=== PATIENT | female | born 1975 | race Caucasian/White ===

== ENCOUNTER → 2018-08-05 07:40 | Outpatient (CLI) | payer OTHER, SELFPAY ==
--- NOTE | 2018-08-05 | DI.MG.S_ITS ---
BILATERAL DIGITAL SCREENING MAMMOGRAM 3D/2D WITH CAD: 08/05/2018 CLINICAL: Routine screening. Comparison is made to exams dated: 07/29/2017 mammogram and 07/28/2016 mammogram - [facility]. The tissue of both breasts is heterogeneously dense. This may lower the sensitivity of mammography. Current study was also evaluated with a Computer Aided Detection (CAD) system. No significant masses, calcifications, or other findings are seen in either breast. There has been no significant interval change. IMPRESSION: NEGATIVE There is no mammographic evidence of malignancy. A 1 year screening mammogram is recommended. This exam was interpreted at Station ID: [id number]. NOTE: For mammograms, a report in lay terms will be sent to the patient. Approximately 15% of breast malignancies will not be visualized mammographically. In the management of a palpable breast mass, a negative mammogram must not discourage biopsy of a clinically suspicious lesion. Electronically Signed By: Freddy lindo/frandy:08/05/2018 09:29:34 letter sent: Normal Exam ACR BI-RADS Category 1: Negative 3341F
== END ==
PROVIDERS: PCP Family Medicine; Visit Provider Family Medicine
DX: Z12.31 Encounter for screening mammogram for malignant neoplasm of breast (principal)
CPT/HCPCS: 77063; 77067

== ENCOUNTER → 2019-11-16 09:29 | Outpatient (CLI) | payer OTHER, SELFPAY ==
--- NOTE | 2019-11-16 09:32 | DI.RAD.S_ITS ---
PROCEDURE: XR FINGER RT MIN 2V INDICATIONS: R index finger TECHNIQUE: AP hand, 2 views of the index finger(s) acquired. COMPARISON: None. FINDINGS: Bones: No fractures or dislocations. No suspicious bony lesions. No osseous erosions are identified. Soft tissues: No suspicious soft tissue calcifications. No radiopaque foreign bodies are identified. IMPRESSION: No acute osseous abnormality of the right index finger. Dictated by: Stephen Gauthier M.D. on 11/16/2019 at 8:51 Approved by: Stephen Gauthier M.D. on 11/16/2019 at 8:52
== END ==
PROVIDERS: PCP Family Medicine; Referring Provider Physician Assistant; Visit Provider Physician Assistant
DX: M79.644 Pain in right finger(s) (principal)
CPT/HCPCS: 73140

== ENCOUNTER → 2020-08-14 13:47 | Outpatient (CLI) | payer OTHER, SELFPAY ==
--- NOTE | 2020-08-14 14:45 | DI.MRI.S_ITS ---
PROCEDURE: MR HAND RT WO/W CON INDICATIONS: Cellulitis of right finger TECHNIQUE: Noncontrast coronal T1 spin echo and STIR, sagittal T1 spin echo with fat saturation and STIR, axial T1 spin echo and T2 fast spin echo with fat saturation. After the administration of contrast, axial/sagittal/coronal T1 spin echo with fat saturation through the right hand. COMPARISON: [facility], CR, XR FINGER RT MIN 2V, 11/16/2019, 8:36. FINDINGS: There is marrow signal change within the distal phalanx of the thumb, demonstrating enhancement and T2 hyperintensity. There is loss of the normal marrow fat signal intensity on T1 weighted pulse sequences suggestive of osteomyelitis. There is associated overlying distal thumb soft tissue swelling and cellulitis. No discrete rim enhancing abscess identified. The visualized flexor and extensor tendons appear grossly intact IMPRESSION: Marrow signal changes and enhancement involving the distal phalanx of the thumb suggestive of osteomyelitis. Adjacent severe cellulitis . Dictated by: Issa Nunez M.D. on 08/14/2020 at 15:17 Approved by: Issa Nunez M.D. on 08/14/2020 at 15:23
== END ==
PROVIDERS: PCP Family Medicine; Referring Provider Physician Assistant Medical; Visit Provider Physician Assistant Medical
DX: L03.011 Cellulitis of right finger (principal)
CPT/HCPCS: 73220; 73223; A9579

== ENCOUNTER → 2021-02-03 08:12 | Outpatient (CLI) | payer OTHER, SELFPAY ==
--- NOTE | 2021-02-03 08:12 | DI.US.S_ITS ---
PROCEDURE: US PELVIC COMPLETE INDICATIONS: ?FIBROIDS TECHNIQUE: Real-time scanning was performed of the pelvic organs, with image documentation. Additional endovaginal scanning was necessary due to incomplete visualization of the adnexal and endometrial structures by transabdominal scanning. COMPARISON: [facility], US, PELVIC COMPLETE, 04/13/2011, 13:40. FINDINGS: Uterus: Uterus is normal in size at 8.5 x 5 x 4.7 cm. The uterus is heterogeneous, yet no focal fibroids are seen. The endometrium measures 4 mm in combined thickness. Uterus is retroflexed. Incidental note is made of nabothian cysts. Ovaries: The right ovary measures 2.2 x 1.7 x 1.3 cm. The left ovary measures 4.4 x 2.8 x 2.6 cm and is seen transabdominally only. Within the left ovary, there is a likely minimally complex cyst seen that measures 3.7 x 1.3 x 2.1 cm. The ovaries have a normal sonographic appearance. No adnexal masses are seen. Other: No pathologic free abdominal or pelvic fluid. IMPRESSION: No focal fibroids are seen. Likely minimally complex cyst involving the left ovary measuring 3.7 cm. This is almost certainly benign in a patient of this age. If it would be clinically appropriate, a followup pelvic ultrasound could be considered in 6 weeks to assure resolution/ improvement. Dictated by: Jamal Donohue M.D. on 02/03/2021 at 11:23 Approved by: Jamal Donohue M.D. on 02/03/2021 at 11:24
== END ==
PROVIDERS: PCP Family Medicine; Referring Provider Obstetrics & Gynecology; Visit Provider Obstetrics & Gynecology
DX: D21.9 Benign neoplasm of connective and other soft tissue, unspecified (principal); N83.202 Unspecified ovarian cyst, left side
CPT/HCPCS: 76830; 76856

== ENCOUNTER → 2021-02-04 07:12 | Outpatient (CLI) | payer OTHER, SELFPAY ==
--- NOTE | 2021-02-04 | DI.MRI.S_ITS ---
PROCEDURE: MR HAND RT WO/W CON INDICATIONS: Other acute osteomyelitis, right hand TECHNIQUE: Noncontrast coronal T1 spin echo and STIR, sagittal T1 spin echo with fat saturation and STIR, axial T1 spin echo and T2 fast spin echo with fat saturation. After the administration of contrast, axial/sagittal/coronal T1 spin echo with fat saturation through the right hand. COMPARISON: [facility], MR, MR HAND RT WO/W CON, 08/14/2020, 14:08. FINDINGS: Image quality: Excellent. Bones: Compared to previous study, there is mild residual marrow edema involving distal phalanx of the thumb improved since previous study. No new area of abnormal marrow signal is seen. Subtle contrast enhancement in distal portion of the 1st distal phalanx is seen. No other area of intraosseous enhancement. Subtle erosion involving 1st distal phalangeal tuft is seen. No other bony erosive changes are seen. Soft tissues: Mild soft tissue swelling around the 1st distal phalanx is noted. No discrete drainable fluid collection is seen. No enhancing soft tissue mass. The scanned muscles demonstrate normal overall bulk and internal signal. IMPRESSION: 1. Subtle signal abnormality involving distal portion of 1st distal phalanx with mild surrounding soft tissue edema and swelling and very subtle erosion involving 1st distal phalangeal tuft suggestive of residual osteomyelitis significantly improved since previous study. 2. No new area of marrow signal abnormality. No soft tissue mass or discrete abscess collection. No right hand muscle signal abnormality. Dictated by: Ren Troy M.D. on 02/04/2021 at 9:32 Approved by: Ren Troy M.D. on 02/04/2021 at 9:46
== END ==
PROVIDERS: PCP Family Medicine; Referring Provider Internal Medicine; Visit Provider Internal Medicine
DX: M86.141 Other acute osteomyelitis, right hand (principal); M25.441 Effusion, right hand
CPT/HCPCS: 73220

== ENCOUNTER → 2021-03-20 16:25 | Outpatient (CLI) | payer OTHER, SELFPAY ==
--- NOTE | 2021-03-20 | DI.MG.S_ITS ---
BILATERAL DIGITAL SCREENING MAMMOGRAM 3D/2D WITH CAD: 03/20/2021 CLINICAL: Routine screening. Comparison is made to exams dated: 08/05/2018 mammogram, 07/29/2017 mammogram, and 07/28/2016 mammogram - [facility]. The tissue of both breasts is heterogeneously dense. This may lower the sensitivity of mammography. Current study was also evaluated with a Computer Aided Detection (CAD) system. No significant masses, calcifications, or other findings are seen in either breast. There has been no significant interval change. IMPRESSION: NEGATIVE There is no mammographic evidence of malignancy. A 1 year screening mammogram is recommended. This exam was interpreted at Station ID: [id number]. NOTE: For mammograms, a report in lay terms will be sent to the patient. Approximately 15% of breast malignancies will not be visualized mammographically. In the management of a palpable breast mass, a negative mammogram must not discourage biopsy of a clinically suspicious lesion. Electronically Signed By: Clovis fitch/frandy:03/20/2021 17:13:51 letter sent: Normal Exam ACR BI-RADS Category 1: Negative 3341F
== END ==
PROVIDERS: PCP Family Medicine; Referring Provider Family Medicine; Visit Provider Family Medicine
DX: Z12.31 Encounter for screening mammogram for malignant neoplasm of breast (principal)
CPT/HCPCS: 77063; 77067

== ENCOUNTER → 2021-05-01 08:42 | Outpatient (CLI) | payer OTHER, SELFPAY | PROVIDERS: PCP Family Medicine; Referring Provider Internal Medicine; Visit Provider Family Medicine | DX: M86.441 Chronic osteomyelitis with draining sinus, right hand (principal); R60.0 Localized edema | CPT/HCPCS: 99204; 99212 ==

== ENCOUNTER → 2021-05-05 14:35 | Outpatient (ROUT) | payer OTHER, SELFPAY ==
[2021-05-05 14:44] LABS: Add Manual Diff / Slide Review NO; Basophils Absolute Auto 100 /uL (0-100); Eosinophils Absolute Auto 300 /uL (0-450); Eosinophils Percent Auto 3.2 % (2-4); Hematocrit 39.1 % (36-46); Hemoglobin 13.7 g/dL (12.0-16.0); Lymphocytes Absolute Auto 1700 /uL (1100-4500); Lymphocytes Percent Auto 22.2 % (25-40); Mean Corpuscular HGB Conc 35.1 % (30-36); Mean Corpuscular Hemoglobin 33.2 PG (26-34); Mean Corpuscular Volume 94.8 fL (80-100); Monocytes Absolute Auto 700 /uL (0-900); Monocytes Percent Auto 9.2 % (3-14); Neutrophils Absolute Auto 5000 /uL (1500-7000); Neutrophils Percent Auto 64.4 % (50-75); Platelet Count 242 X10^3/uL (150-400); Red Blood Cell Count 4.12 X10^6/uL (4.0-5.2); Red Cell Distribution Width 12.8 % (11.6-14.8); White Blood Cell Count 7.8 X10^3/uL (4.5-11.0)
[2021-05-05 14:57] LABS: Alanine Aminotransferase 44 IU/L (<35); Albumin 4.1 g/dL (3.5-5.0); Albumin Globulin Ratio 1.6 (1.0-2.8); Alkaline Phosphatase 52 U/L (38-126); Aspartate Aminotransferase 44 IU/L (14-36); BUN Creatinine Ratio 19.1 (6-22); Bilirubin Total 0.6 mg/dL (0.2-1.3); Blood Urea Nitrogen 13 mg/dL (7-17); C-Reactive Protein Quant 0.7 mg/dL (<1.0); Calcium 9.4 mg/dL (8.4-10.2); Carbon Dioxide 28 mmol/L (22-32); Chloride 104 mmol/L (98-107); Estimated Glomerular Filt Rate > 60.0 mL/min (>60); Globulin 2.6 g/dL (1.7-4.1); Glucose 109 mg/dL (70-100); HEMOLYSIS 27 (0-50); Potassium 4.3 mmol/L (3.4-5.1); Sodium 139 mmol/L (137-145); Total Protein 6.7 g/dL (6.3-8.2)
[2021-05-05 14:58] LABS: Vancomycin Trough 12.4 ug/mL (10-20)
[2021-05-05 15:02] LABS: Erythrocyte Sedimentation Rate 8 MM/HR (0-20)
== END ==
PROVIDERS: PCP Family Medicine; Visit Provider Internal Medicine
DX: M86.9 Osteomyelitis, unspecified (principal)
CPT/HCPCS: 80053; 80202; 85025; 85651; 86140

== ENCOUNTER 2021-05-14 10:44 | Inpatient (IN) | payer OTHER, SELFPAY ==
[2021-05-14] VITALS (25 sets, daily range): BP systolic 100–136; BP diastolic 57–81; PULSE 67–103; RESP 17–32; TEMP 36.4–38.5; O2SAT 88–98; BMI 38.4
--- NOTE | 2021-05-14 13:29 | PC.NURSE ---
Pt also reports insomnia, headache, diarrhea, SOB, nausea and on and off fever. PICC line in left arm r/t bone infection in right thumb. COVID + on 05/07/21.
--- NOTE | 2021-05-14 15:24 | ED.GENADULT ---
HPI - General Adult General Chief complaint: Shortness of Breath/Dyspnea Stated complaint: COVID+ o2 levels are low. referred by Marni Time Seen by Provider: 05/14/21 15:24 Source: patient Mode of arrival: Ambulatory History of Present Illness HPI narrative: 46-year-old woman with history of asthma, depression, ADHD, osteomyelitis of the right thumb currently with a PICC line in place receiving vancomycin t.i.d. and due for a dose presents with worsening COVID symptoms. She has had COVID for the last 7 days and is increasingly dyspneic, tachypneic, complains of severe pleuritic chest pain secondary to her cough. She notes that she is getting increasingly fatigued and feels dyspneic simply at rest. She has had little to eat or drink because of her nausea she has had some mild diarrhea. No lower extremity edema. Her right thumb with the osteomyelitis is being treated and seems to be healing nicely. Complains of a severe headache secondary to dehydration exacerbated by the cough. Related Data Home Medications Medication Instructions Recorded Confirmed polyethylene glycol 3350 17 #0 03/17/17 05/03/20 gram/dose oral powder (Miralax) Previous Rx's Medication Instructions Recorded albuterol sulfate 90 mcg/actuation 2 puff INHALATION Q4-6H PRN #8.5 05/27/19 aerosol inhaler gram inhalational spacing device #1 each 05/27/19 (Flexichamber) dextroamphetamine 10 mg 20 mg PO QDAY #180 cap 02/19/20 capsule,extended release (Dexedrine Spansule) spironolactone 50 mg tablet See Rx Instructions .ROUTE 04/16/20 .COMPLEX #180 tablet metformin 500 mg tablet See Rx Instructions .ROUTE 07/01/20 .COMPLEX #180 tablet doxycycline hyclate 100 mg capsule 100 mg PO BID #20 cap 07/08/20 sulfamethoxazole 800 1 tab PO BID #20 tab 07/31/20 mg-trimethoprim 160 mg tablet (Bactrim DS) silver sulfadiazine 1 % topical 1 applic TOPICAL DAILY #20 g 11/14/20 cream (Silvadene) fluticasone 250 mcg-salmeterol 50 1 inh INHALATION BID #60 each 12/30/20 mcg/dose blistr powdr for inhalation (Advair Diskus) bupropion HCl 150 mg tablet,12 hr See Rx Instructions .ROUTE 02/27/21 sustained-release .COMPLEX #30 tablet metoprolol succinate 25 mg See Rx Instructions .ROUTE 02/27/21 tablet,extended release 24 hr .COMPLEX #30 tablet trazodone 100 mg tablet 100 mg PO BEDTIME #30 tab 02/27/21 spironolactone 25 See Rx Instructions .ROUTE 05/06/21 mg-hydrochlorothiazide 25 mg tablet .COMPLEX #90 tab phentermine 37.5 mg capsule 37.5 mg PO DAILY #60 cap 05/07/21 Allergies Allergy/AdvReac Type Severity Reaction Status Date / Time sumatriptan Allergy Mild SORE NECK Verified 05/03/20 14:37 Adhesives AdvReac Mild RASH Uncoded 05/03/20 14:37 Review of Systems Review of Systems Narrative: Remainder of complete review of systems is otherwise unremarkable except for that included in the HPI. Patient History Medical History (Updated 05/14/21 @ 17:23 by Ammy Arboleda MD) Anxiety Asthma Hyperlipidemia Liver disease Migraines Obesity Personality disorder Surgical History Status post delivery Status post surgery (04/20/11) Family History Mother DM (diabetes mellitus screen) Hypertension Social History marital status: Smoking Status: Former smoker alcohol intake: current substance use type: does not use Smoking Status: Former smoker alcohol intake frequency: 0-2 drinks per day Substance Use Type: does not use Exam Narrative Exam Narrative: General: Acutely ill-appearing, flushed, tachypneic with dry cough. Able to give a complete and coherent history. Well-nourished well-developed HEENT: Dry mucous membranes, normal sclera with reactive pupils, Neck: No JVD, supple, no cervical adenopathy Respiratory: Lungs with diffuse wheeze in all lung gallegos and developing left lower lobe rhonchi Full and symmetrical air movement Cardiac: Mild tachycardia but otherwise Regular rate and rhythm no murmurs no bruits Abdomen: Soft, diffuse tenderness secondary to cough good bowel tones, no flank pain Skin: Warm and dry, no rashes Neurologic: Grossly neurologically intact with no obvious asymmetries or abnormalities Extremities: No trauma, well perfused Psych: Cooperative, appropriate insight and affect Initial Vital Signs Initial Vital Signs: Vital Signs Temperature 101.3 F H 05/14/21 11:18 Pulse Rate 103 H 05/14/21 11:18 Respiratory Rate 24 05/14/21 11:18 Blood Pressure 122/80 05/14/21 11:18 Pulse Oximetry 98 05/14/21 11:18 Course Orders Ordered: ED Orders 05/14/21 15:33 XR chest 1V Stat 05/14/21 16:12 Complete Blood Count AUTO DIFF Stat Comprehensive Metabolic Panel Stat D Dimer Stat Lactate (Lactic Acid) Stat Magnesium Stat NT-proBNP (BNP-Adult 18+) Stat Procalcitonin Stat 05/14/21 16:22 Blood Culture Stat 05/15/21 16:00 Vancomycin Trough Urgent 05/15/21 19:00 Vancomycin Peak Urgent Vancomycin HCl/Dextrose (Vancomycin) 1,500 mg in 300 mls @ 200 mls/hr IV Q8H RACHEL Last Admin: 05/14/21 16:43 Dose: 200 mls/hr Documented by: JOSÉ MIGUELW Vancomycin HCl (Vancomycin Trough) 1 request MISC 1600 ONE Stop: 05/15/21 16:01 Vancomycin HCl (Vancomycin Peak) 1 request MISC 1900 ONE Stop: 05/15/21 19:01 Discontinued Medications Albuterol (Albuterol 2.5 Mg/3 Ml Neb (Adult)) 2.5 mg INH NOW ONE Stop: 05/14/21 15:33 Dexamethasone (Dexamethasone 10 Mg/Ml Vial) 6 mg IV NOW ONE Stop: 05/14/21 17:17 Sodium Chloride (Normal Saline 0.9%) 1,000 mls @ 1,000 mls/hr IV BOLUS ONE Stop: 05/14/21 16:31 Last Infusion: 05/14/21 17:00 Dose: 0 mls/hr Documented by: Admin: 05/14/21 15:42 Dose: 1,000 mls/hr Documented by: CHRIS Ketorolac Tromethamine (Ketorolac 30 Mg/Ml Vial) 15 mg IV NOW ONE Stop: 05/14/21 15:33 Last Admin: 05/14/21 15:42 Dose: 15 mg Documented by: CHRIS Ondansetron HCl (Ondansetron 4 Mg/2 Ml Inj) 4 mg IV NOW ONE Stop: 05/14/21 15:33 Last Admin: 05/14/21 15:42 Dose: 4 mg Documented by: CHRIS Oxycodone/Acetaminophen (Oxycodone/Acetaminophen 5/325 Tablet) 1 tab PO NOW ONE Stop: 05/14/21 15:33 Last Admin: 05/14/21 15:42 Dose: 1 tab Documented by: CHRIS Vancomycin HCl (Vancomycin Per Pharmacy) 1 request MISC NOW ONE Stop: 05/14/21 15:35 Last Admin: 05/14/21 16:59 Dose: 1 request Documented by: CHRIS Vital Signs Vital signs: Vital Signs - 8 hr 05/14/21 11:18 05/14/21 13:05 05/14/21 13:12 Temperature 101.3 F H 99.5 F Pulse Rate 103 H 103 H Respiratory Rate 24 Blood Pressure 122/80 136/81 Pulse Oximetry 98 97 05/14/21 13:30 05/14/21 14:00 05/14/21 14:30 Temperature Pulse Rate 96 H 96 H 96 H Respiratory Rate Blood Pressure 133/69 132/72 120/70 Pulse Oximetry 93 91 93 05/14/21 14:45 05/14/21 15:00 05/14/21 15:05 Temperature 99.1 F Pulse Rate 93 H Respiratory Rate Blood Pressure 117/59 L Pulse Oximetry 88 L 90 L 05/14/21 15:26 05/14/21 15:30 05/14/21 15:40 Temperature Pulse Rate 91 H 92 H Respiratory Rate Blood Pressure 122/58 L 121/71 Pulse Oximetry 93 97 98 05/14/21 16:00 05/14/21 16:03 05/14/21 16:30 Temperature Pulse Rate 90 90 85 Respiratory Rate 30 H 32 H 32 H Blood Pressure 115/57 L 113/60 Pulse Oximetry 95 96 95 05/14/21 17:00 Temperature Pulse Rate 79 Respiratory Rate 23 Blood Pressure 113/58 L Pulse Oximetry 94 Medical Decision Making Lab Data Result diagrams: 05/14/21 16:12 05/14/21 16:12 Labs: Lab Results 05/14/21 05/14/21 05/14/21 Range/Units 16:12 16:12 16:12 WBC 5.3 (4.5-11.0) X10^3/uL RBC 4.17 (4.0-5.2) X10^6/uL Hgb 13.4 (12.0-16.0) g/dL Hct 38.5 (36-46) % MCV 92.2 (80-100) fL MCH 32.1 (26-34) PG MCHC 34.8 (30-36) % RDW 12.1 (11.6-14.8) % Plt Count 163 (150-400) X10^3/uL Neut % (Auto) 74.5 (50-75) % Lymph % (Auto) 15.8 L (25-40) % [place] % (Auto) 9.5 (3-14) % Eos % (Auto) 0.0 L (2-4) % Baso % (Auto) 0.2 (0-2) % Neut # (Auto) 3900 (3531-3656) /uL Lymph # (Auto) 800 L (8792-9481) /uL [place] # (Auto) 500 (0-900) /uL Eos # (Auto) 0 (0-450) /uL Baso # (Auto) 0 (0-100) /uL D-Dimer 422 H (<230) ng/mL Sodium 129 L D (137-145) mmol/L Potassium 3.9 (3.4-5.1) mmol/L Chloride 91 L (98-107) mmol/L Carbon Dioxide 29 (22-32) mmol/L BUN 9 (7-17) mg/dL Creatinine 0.87 (0.52-1.04) mg/dL Estimated GFR > 60.0 (>60) mL/min BUN/Creatinine Ratio 10.3 (6-22) Glucose 115 H (70-100) mg/dL Lactate (0.7-2.1) mmol/L Calcium 8.7 (8.4-10.2) mg/dL Magnesium 1.6 (1.6-2.3) mg/dL Total Bilirubin 0.5 (0.2-1.3) mg/dL AST 191 H (14-36) IU/L ALT 159 H (<35) IU/L Alkaline Phosphatase 65 (38-126) U/L Total Protein 7.4 (6.3-8.2) g/dL Albumin 4.1 (3.5-5.0) g/dL Globulin 3.3 (1.7-4.1) g/dL Albumin/Globulin Ratio 1.2 (1.0-2.8) 05/14/ Range/Units 16:12 WBC (4.5-11.0) X10^3/uL RBC (4.0-5.2) X10^6/uL Hgb (12.0-16.0) g/dL Hct (36-46) % MCV (80-100) fL MCH (26-34) PG MCHC (30-36) % RDW (11.6-14.8) % Plt Count (150-400) X10^3/uL Neut % (Auto) (50-75) % Lymph % (Auto) (25-40) % [place] % (Auto) (3-14) % Eos % (Auto) (2-4) % Baso % (Auto) (0-2) % Neut # (Auto) (1858-0414) /uL Lymph # (Auto) (6471-0601) /uL [place] # (Auto) (0-900) /uL Eos # (Auto) (0-450) /uL Baso # (Auto) (0-100) /uL D-Dimer (<230) ng/mL Sodium (137-145) mmol/L Potassium (3.4-5.1) mmol/L Chloride (98-107) mmol/L Carbon Dioxide (22-32) mmol/L BUN (7-17) mg/dL Creatinine (0.52-1.04) mg/dL Estimated GFR (>60) mL/min BUN/Creatinine Ratio (6-22) Glucose (70-100) mg/dL Lactate 1.0 (0.7-2.1) mmol/L Calcium (8.4-10.2) mg/dL Magnesium (1.6-2.3) mg/dL Total Bilirubin (0.2-1.3) mg/dL AST (14-36) IU/L ALT (<35) IU/L Alkaline Phosphatase (38-126) U/L Total Protein (6.3-8.2) g/dL Albumin (3.5-5.0) g/dL Globulin (1.7-4.1) g/dL Albumin/Globulin Ratio (1.0-2.8) Imaging Data Chest x-ray: Radiologist's Impression: FINDINGS:? ? Surgical changes and devices:? None.? ? Lungs and pleura:? Patchy consolidation noted in the lungs bilaterally.? No pleural effusions or pneumothorax.? ? Mediastinum:? Mediastinal contours appear normal.? Heart size is normal.? ? Bones and chest wall:? No suspicious bony lesions.? Overlying soft tissues appear unremarkable.? ? IMPRESSION:? Bilateral lung multifocal pneumonia. ? ? Dictated by: Demetria Daniels MD, PhD on 05/14/2021 at 16:15 ? ? MDM Narrative Medical decision making narrative: 46-year-old woman and vaccinated against COVID with COVID symptoms for the last 7 days getting worse with increasing dyspnea even at rest at this point. She has significant asthma and usually uses an Advair inhaler daily with minimal need for rescue inhaler. She has been having difficulty eating and drinking because of nausea, general malaise and her significant cough. The cough has been severe enough that she has a headache and with each cough headache pleuritic chest pain and abdominal pain is becoming more and more difficult. She comes in today with increasing fatigue requesting help assistance. She currently is at 94% on 2 L with activity and sitting up gets as high as 98% but of sleeping inclined without any snoring drops into the 88-89% range. Feeling better with fluids, and steroids. Will hold nebulized treatment until she is in a reverse airflow room. Will give her 2 g of Solu-Medrol to help with the acute asthma exacerbation. Still febrile still hurting from the severity of the cough. Her primary care doctor is Dr. Grider so she will be admitted by Dr. Aponte. She is safe for transfer to the floor Discharge Plan Departure Patient Disposition: Admitted As Inpatient Clinical Impression: Pneumonia due to 2019-nCoV, Acute asthma exacerbation, Respiratory failure with hypoxia, Osteomyelitis Admit Date/Time: 05/14/21 17:17 Admit Provider: Senia Aponte
--- NOTE | 2021-05-14 15:33 | DI.RAD.S_ITS ---
PROCEDURE: XR CHEST 1V INDICATIONS: cough TECHNIQUE: One view of the chest was acquired. COMPARISON: [facility], , CHEST 2 VIEW, 05/23/2013, 16:38. FINDINGS: Surgical changes and devices: None. Lungs and pleura: Patchy consolidation noted in the lungs bilaterally. No pleural effusions or pneumothorax. Mediastinum: Mediastinal contours appear normal. Heart size is normal. Bones and chest wall: No suspicious bony lesions. Overlying soft tissues appear unremarkable. IMPRESSION: Bilateral lung multifocal pneumonia. Dictated by: Demetria Daniels MD, PhD on 05/14/2021 at 16:15 Approved by: Demetria Daniels MD, PhD on 05/14/2021 at 16:15
[2021-05-14] MEDS: OXYCODONE/ACETAMINOPHEN 5/325 TABLET 1 TAB PO (15:42)
[2021-05-14] MEDS: SODIUM CHLORIDE 0.9% 1,000 ML 1000 ML IV (15:42)
[2021-05-14] MEDS: ONDANSETRON 4 MG/2 ML INJ IV (15:42)
[2021-05-14] MEDS: KETOROLAC 30 MG/ML VIAL 15 MG IV (15:42)
[2021-05-14 16:37] LABS: Add Manual Diff / Slide Review NO; Basophils Absolute Auto 0 /uL (0-100); Basophils Percent Auto 0.2 % (0-2); Eosinophils Absolute Auto 0 /uL (0-450); Hematocrit 38.5 % (36-46); Hemoglobin 13.4 g/dL (12.0-16.0); Lymphocytes Absolute Auto 800 /uL (1100-4500); Lymphocytes Percent Auto 15.8 % (25-40); Mean Corpuscular HGB Conc 34.8 % (30-36); Mean Corpuscular Hemoglobin 32.1 PG (26-34); Mean Corpuscular Volume 92.2 fL (80-100); Monocytes Absolute Auto 500 /uL (0-900); Monocytes Percent Auto 9.5 % (3-14); Neutrophils Absolute Auto 3900 /uL (1500-7000); Neutrophils Percent Auto 74.5 % (50-75); Platelet Count 163 X10^3/uL (150-400); Red Blood Cell Count 4.17 X10^6/uL (4.0-5.2); Red Cell Distribution Width 12.1 % (11.6-14.8); White Blood Cell Count 5.3 X10^3/uL (4.5-11.0)
[2021-05-14] MEDS: VANCOMYCIN 1,500 MG/300 ML PIGGYBACK 200 MG IV (16:43)
[2021-05-14 16:54] LABS: D Dimer 422 ng/mL (<230)
[2021-05-14 16:55] LABS: Alanine Aminotransferase 159 IU/L (<35); Albumin 4.1 g/dL (3.5-5.0); Albumin Globulin Ratio 1.2 (1.0-2.8); Alkaline Phosphatase 65 U/L (38-126); Aspartate Aminotransferase 191 IU/L (14-36); BUN Creatinine Ratio 10.3 (6-22); Bilirubin Total 0.5 mg/dL (0.2-1.3); Blood Urea Nitrogen 9 mg/dL (7-17); Calcium 8.7 mg/dL (8.4-10.2); Carbon Dioxide 29 mmol/L (22-32); Chloride 91 mmol/L (98-107); Estimated Glomerular Filt Rate > 60.0 mL/min (>60); Globulin 3.3 g/dL (1.7-4.1); Glucose 115 mg/dL (70-100); HEMOLYSIS < 15 (0-50); Magnesium 1.6 mg/dL (1.6-2.3); Potassium 3.9 mmol/L (3.4-5.1); Sodium 129 mmol/L (137-145); Total Protein 7.4 g/dL (6.3-8.2)
[2021-05-14] MEDS: VANCOMYCIN PER PHARMACY 1 REQUEST MISC (16:59)
[2021-05-14 17:25] LABS: NT-proBNP (BNP-Adult 18+) 49 pg/mL (<125)
--- NOTE | 2021-05-14 18:17 | P.HP_ITS ---
History of Present Illness History of Present Illness Date Patient Seen: 05/14/21 Time Patient Seen: 17:30 Chief complaint: COVID+ o2 levels are low. referred by Marni Narrative: Pt is a 46yo woman with PCOS, HTN, asthma without recent exacerbation, depression, and chronic osteomyelitis who presented with worsening SOB and cough. The pt reports that starting one week ago she developed a frequent cough and generally didn't feel well. She completed three different COVID tests at home, and all were positive. Since then, her cough has continued to worsen. She has had intermittent fevers, never above around 101.5F. She has been feeling increasingly SOB. She lost her sense of taste and smell. She has had mild diarrhea, however states this is not all that unusual for her due to her chronic antibiotics for osteomyelitis. She has had decreased PO intake due to feeling quite nauseous and not having any sense of taste. She has developed significant chest pain due to how much she is coughing now. She had an appointment with her ID physician this morning, who recommended she come to the ED for evaluation due to how SOB she was feeling. The pt has not received any COVID vaccines. Patient History Medical History (Updated 05/14/21 @ 17:23 by Ammy Arboleda MD) Anxiety Asthma Hyperlipidemia Liver disease Migraines Obesity Personality disorder Surgical History Status post delivery Status post surgery (04/20/11) Family & Social History Family History Mother DM (diabetes mellitus screen) Hypertension Safety & Behavioral: Feels Safe in Current Yes Environment Been Physically Hurt or No Threatened By a Person Tobacco & Substance use: Smoking Status Former smoker alcohol intake current alcohol intake frequency 0-2 drinks per day Substance Use Type does not use Meds Home Medications and Allergies Home Medications Medication Instructions Recorded Confirmed Type polyethylene glycol 3350 17 #0 03/17/17 05/03/20 History gram/dose oral powder (Miralax) albuterol sulfate 90 mcg/actuation 2 puff INHALATION Q4-6H PRN #8.5 05/27/19 05/03/20 Rx aerosol inhaler gram inhalational spacing device #1 each 05/27/19 05/03/20 Rx (Flexichamber) dextroamphetamine 10 mg 20 mg PO QDAY #180 cap 02/19/20 05/03/20 Rx capsule,extended release (Dexedrine Spansule) spironolactone 50 mg tablet See Rx Instructions .ROUTE 04/16/20 05/03/20 Rx .COMPLEX #180 tablet metformin 500 mg tablet See Rx Instructions .ROUTE 07/01/20 Rx .COMPLEX #180 tablet doxycycline hyclate 100 mg capsule 100 mg PO BID #20 cap 07/08/20 Rx sulfamethoxazole 800 1 tab PO BID #20 tab 07/31/20 Rx mg-trimethoprim 160 mg tablet (Bactrim DS) silver sulfadiazine 1 % topical 1 applic TOPICAL DAILY #20 g 11/14/20 Rx cream (Silvadene) fluticasone 250 mcg-salmeterol 50 1 inh INHALATION BID #60 each 12/30/20 Rx mcg/dose blistr powdr for inhalation (Advair Diskus) bupropion HCl 150 mg tablet,12 hr See Rx Instructions .ROUTE 02/27/21 Rx sustained-release .COMPLEX #30 tablet metoprolol succinate 25 mg See Rx Instructions .ROUTE 02/27/21 Rx tablet,extended release 24 hr .COMPLEX #30 tablet trazodone 100 mg tablet 100 mg PO BEDTIME #30 tab 02/27/21 Rx spironolactone 25 See Rx Instructions .ROUTE 05/06/21 Rx mg-hydrochlorothiazide 25 mg tablet .COMPLEX #90 tab phentermine 37.5 mg capsule 37.5 mg PO DAILY #60 cap 05/07/21 Rx Allergies Allergy/AdvReac Type Severity Reaction Status Date / Time sumatriptan Allergy Mild SORE NECK Verified 05/03/20 14:37 Adhesives AdvReac Mild RASH Uncoded 05/03/20 14:37 Exam Vital Signs (past 8 hours): - 05/14/21 11:18 05/14/21 13:05 05/14/21 13:12 Temperature 101.3 F H 99.5 F Pulse Rate 103 H 103 H Respiratory Rate 24 Blood Pressure 122/80 136/81 Pulse Oximetry 98 97 05/14/21 13:30 05/14/21 14:00 05/14/21 14:30 Temperature Pulse Rate 96 H 96 H 96 H Respiratory Rate Blood Pressure 133/69 132/72 120/70 Pulse Oximetry 93 91 93 05/14/21 14:45 05/14/21 15:00 05/14/21 15:05 Temperature 99.1 F Pulse Rate 93 H Respiratory Rate Blood Pressure 117/59 L Pulse Oximetry 88 L 90 L 05/14/21 15:26 05/14/21 15:30 05/14/21 15:40 Temperature Pulse Rate 91 H 92 H Respiratory Rate Blood Pressure 122/58 L 121/71 Pulse Oximetry 93 97 98 05/14/21 16:00 05/14/21 16:03 05/14/21 16:30 Temperature Pulse Rate 90 90 85 Respiratory Rate 30 H 32 H 32 H Blood Pressure 115/57 L 113/60 Pulse Oximetry 95 96 95 05/14/21 17:00 Temperature Pulse Rate 79 Respiratory Rate 23 Blood Pressure 113/58 L Pulse Oximetry 94 Oxygen Delivery Method Nasal Cannula Oxygen Flow Rate 1 Narrative Exam Narrative: Gen: NAD, laying in bed, sweating Neck: no LAD CV: RRR, no murmurs Resp: decreased air movement throughout, crackles bilateral bases, expiratory wheezing all lung gallegos Abd: soft, nontender, nondistended, normoactive bowel sounds Ext: no edema Objective Labs Result Diagrams: 05/14/21 16:12 05/14/21 16:12 Labs: Laboratory Results - last 24 hr 05/14/21 05/14/21 05/14/21 16:12 16:12 16:12 WBC 5.3 RBC 4.17 Hgb 13.4 Hct 38.5 MCV 92.2 MCH 32.1 MCHC 34.8 RDW 12.1 Plt Count 163 Neut % (Auto) 74.5 Lymph % (Auto) 15.8 L [place] % (Auto) 9.5 Eos % (Auto) 0.0 L Baso % (Auto) 0.2 Neut # (Auto) 3900 Lymph # (Auto) 800 L [place] # (Auto) 500 Eos # (Auto) 0 Baso # (Auto) 0 D-Dimer 422 H Sodium 129 L D Potassium 3.9 Chloride 91 L Carbon Dioxide 29 BUN 9 Creatinine 0.87 Estimated GFR > 60.0 BUN/Creatinine Ratio 10.3 Glucose 115 H Lactate Calcium 8.7 Magnesium 1.6 Total Bilirubin 0.5 AST 191 H ALT 159 H Alkaline Phosphatase 65 NT-Pro-B Natriuret Pep Total Protein 7.4 Albumin 4.1 Globulin 3.3 Albumin/Globulin Ratio 1.2 Procalcitonin 05/14/21 05/14/21 16:12 16:12 WBC RBC Hgb Hct MCV MCH MCHC RDW Plt Count Neut % (Auto) Lymph % (Auto) [place] % (Auto) Eos % (Auto) Baso % (Auto) Neut # (Auto) Lymph # (Auto) [place] # (Auto) Eos # (Auto) Baso # (Auto) D-Dimer Sodium Potassium Chloride Carbon Dioxide BUN Creatinine Estimated GFR BUN/Creatinine Ratio Glucose Lactate 1.0 Calcium Magnesium Total Bilirubin AST ALT Alkaline Phosphatase NT-Pro-B Natriuret Pep 49 Total Protein Albumin Globulin Albumin/Globulin Ratio Procalcitonin 0.30 Assessment & Plan Assessment & Plan narrative: Pt is a 46yo woman with PCOS, HTN, asthma without recent exacerbation, depression, and chronic osteomyelitis who presented with worsening SOB and cough. Tested positive for COVID 7 days ago on multiple tests, not repeated in the ED here. Pt also with evidence of asthma exacerbation. Oxygen requirement primarily for comfort at this point, no severe hypoxia. 1) COVID pneumonia: CXR consistent with pneumonia, however not grossly bacte rial in appearance at this time. Will treat as COVID, and if not improving plan to repeat CXR and potentially add antibiotic coverage. - Dexamethasone daily - Discussed Remdesivir, pt prefers to hold off at this time - RT consulted - Zofran PRN for nausea - Mucinex, Percocet PRN for cough - Tylenol and Ibuprofen PRN for fever, s/p one dose Toradol in the ED 2) Acute asthma exacerbation: Significantly decreased air movement and significant wheezing - Continue home inhalers - Dexamethasone as above - Will hold on nebulizer treatments until RT eval, hopeful can avoid due to COVID and risk to care providers 3) Hyponatremia: Acute. Sodium 129 at admission. s/p 1L NS bolus in the ED - Gentle hydration at 75cc/hr overnight, like to keep COVID pts from fluid overload - Repeat BMP in the AM 4) Elevated liver enzymes: Most likely due to COVID - Will continue to trend 5) Chronic osteomyelitis: - Continue home Vancomycin via PICC, Augmentin - Hesitantly continue home Fluconazole, monitoring liver enzymes closely 6) HTN: - Continue home Metoprolol, HCTZ 7) PCOS: - Continue home Metformin, Spirinolactone 8) Depression: - Continue home Wellbutrin Code: Full Diet: Regular DVT ppx: Lovenox Dispo: Pending improvement in respiratory status. High risk for decompensation due to asthma. Anticipate at least 2 midnights. Time Spent With Patient Critical Care time: I spent a total of [] minutes of critical care time on this patient's care today; this time is exclusive of procedural time.
[2021-05-14] MEDS: DEXAMETHASONE 10 MG/ML VIAL 6 MG IV (18:19)
[2021-05-14] MEDS: MAGNESIUM SULFATE 2 GM/50 ML PIGGYBACK IV (18:19)
--- NOTE | 2021-05-14 19:46 | RT ---
I assessed pt at 1940. Pt is here for asthma exacerbation and COVID+ PNA. Pt is on 2 LPM NC, SpO2 95%, RR 22. BS diminished B/L with clear CIRO. Pt has hx of COPD/asthma and takes Advair and Albuterol at home. Pt is a former smoker as well and quit in 2008. Recommending SVNs for asthma exacerbation, O2 therapy as needed. Educated pt on IS and proning. Pt seems willing to participate.
[2021-05-14] MEDS: ONDANSETRON 4 MG ODT PO (20:34)
[2021-05-14] MEDS: AMOXICILLIN/CLAV 875/125 MG 1 TAB PO (20:35)
[2021-05-14] MEDS: guaiFENesin ER 600 MG TAB 1200 MG PO (20:35)
[2021-05-14] MEDS: TRAZODONE 50 MG TABLET 100 MG PO (20:35)
[2021-05-14] MEDS: SPIRONOLACTONE 25 MG TABLET 50 MG PO (20:35)
[2021-05-14] MEDS: BUDESONIDE 0.5 MG/2 ML NEB INH (20:37)
[2021-05-14] MEDS: ALBUTEROL 2.5 MG/3 ML NEB (ADULT) INH (20:37)
--- NOTE | 2021-05-14 22:47 | RT ---
Pt declined 2300 Duoneb at 2240. Found pt on 2 LPM NC, SpO2 90%. Increased to 4 LPM to maintain SpO2 goal of > or equal to 92% per MD order. RN aware. Pt is supine in bed.
[2021-05-15] VITALS (11 sets, daily range): BP systolic 102–142; BP diastolic 64–86; PULSE 63–91; RESP 16–26; TEMP 36.4–37; O2SAT 91–99
[2021-05-15] MEDS: VANCOMYCIN 1,500 MG/300 ML PIGGYBACK 100 MG IV ×2 (01:05→08:20)
[2021-05-15] MEDS: SODIUM CHLORIDE 0.9% 1,000 ML 75 ML IV (03:02)
[2021-05-15] MEDS: HYDROCODONE/ACET 5/325 TABLET 1 TAB PO ×4 (03:02→20:22)
[2021-05-15 05:59] LABS: Alanine Aminotransferase 160 IU/L (<35); Albumin 3.8 g/dL (3.5-5.0); Albumin Globulin Ratio 1.2 (1.0-2.8); Alkaline Phosphatase 53 U/L (38-126); Aspartate Aminotransferase 173 IU/L (14-36); BUN Creatinine Ratio 14.5 (6-22); Bilirubin Total 0.5 mg/dL (0.2-1.3); Blood Urea Nitrogen 11 mg/dL (7-17); Calcium 8.3 mg/dL (8.4-10.2); Carbon Dioxide 29 mmol/L (22-32); Chloride 97 mmol/L (98-107); Estimated Glomerular Filt Rate > 60.0 mL/min (>60); Globulin 3.2 g/dL (1.7-4.1); Glucose 165 mg/dL (70-100); HEMOLYSIS 22 (0-50); Sodium 132 mmol/L (137-145)
--- NOTE | 2021-05-15 07:27 | PC.NURSE ---
Shift Note-Patient has been on 2-4L NC, SpO2 >90%, painful cough treated with Mucinex and [place], lung sounds coarse throughout. NS @ 75ml/hr, IV Vancomycin given per schedule, afebrile, VSS, had 1 episode diarrhea. SBA to BR.
[2021-05-15] MEDS: guaiFENesin ER 600 MG TAB 1200 MG PO ×2 (08:22→20:21)
[2021-05-15] MEDS: ONDANSETRON 4 MG ODT PO (08:22)
[2021-05-15] MEDS: METOPROLOL ER 25 MG TABLET PO (08:23)
[2021-05-15] MEDS: hydroCHLOROthiazide 25 MG TABLET PO (08:23)
[2021-05-15] MEDS: buPROPion SR 150 MG TAB PO (08:23)
[2021-05-15] MEDS: SPIRONOLACTONE 25 MG TABLET 75 MG PO (08:23)
[2021-05-15] MEDS: FLUCONAZOLE 100 MG TABLET 400 MG PO (08:23)
[2021-05-15] MEDS: DEXAMETHASONE 10 MG/ML VIAL 6 MG IV (08:24)
[2021-05-15] MEDS: ENOXAPARIN 40 MG/0.4 ML SYRINGE SUBCUT (08:24)
[2021-05-15] MEDS: AMOXICILLIN/CLAV 875/125 MG 1 TAB PO ×2 (08:24→20:21)
[2021-05-15] MEDS: METFORMIN HCL 500 MG TABLET PO ×2 (08:24→20:21)
[2021-05-15] MEDS: BUDESONIDE 0.5 MG/2 ML NEB INH ×2 (08:47→19:40)
[2021-05-15] MEDS: ALBUTEROL/IPRATROPIUM 3 ML AMPUL INH ×3 (08:47→19:40)
--- NOTE | 2021-05-15 08:56 | P.PN_ITS ---
Subjective Subjective Date Patient Seen: 05/15/21 Time Patient Seen: 08:30 Interval history: The pt reports that she is feeling significantly improved this morning. She continues to have a frequent, painful cough but states that she no longer feels like . She remains very nauseous, and is curious how breakfast will go. Overnight, her O2 was increased to 4L. She states that she feels worse on the higher flow. Exam Vital Signs (past 8 hours): - 05/15/21 00:58 05/15/21 05:30 05/15/21 08:39 Temperature 97.6 F 97.9 F 97.7 F Pulse Rate 63 68 86 Respiratory Rate 16 20 22 Blood Pressure 110/74 102/64 142/84 H Pulse Oximetry 97 96 99 Oxygen Delivery Method Nasal Cannula Oxygen Flow Rate 4 Narrative Exam Narrative: Gen: NAD, laying in bed, appears significantly better than yesterday CV: RRR, no murmurs Resp: decreased air movement throughout but improved from yesterday, crackles bilateral bases, expiratory wheezing all gallegos Ext: no edema Objective Labs Result Diagrams: 05/14/21 16:12 05/15/21 05:00 Labs: Laboratory Results - last 24 hr 05/14/21 05/14/21 05/14/21 16:12 16:12 16:12 WBC 5.3 RBC 4.17 Hgb 13.4 Hct 38.5 MCV 92.2 MCH 32.1 MCHC 34.8 RDW 12.1 Plt Count 163 Neut % (Auto) 74.5 Lymph % (Auto) 15.8 L [place] % (Auto) 9.5 Eos % (Auto) 0.0 L Baso % (Auto) 0.2 Neut # (Auto) 3900 Lymph # (Auto) 800 L [place] # (Auto) 500 Eos # (Auto) 0 Baso # (Auto) 0 D-Dimer 422 H Sodium 129 L D Potassium 3.9 Chloride 91 L Carbon Dioxide 29 BUN 9 Creatinine 0.87 Estimated GFR > 60.0 BUN/Creatinine Ratio 10.3 Glucose 115 H Lactate Calcium 8.7 Magnesium 1.6 Total Bilirubin 0.5 AST 191 H ALT 159 H Alkaline Phosphatase 65 NT-Pro-B Natriuret Pep Total Protein 7.4 Albumin 4.1 Globulin 3.3 Albumin/Globulin Ratio 1.2 Procalcitonin Nasal Screen MRSA (PCR) 12/05/14/21 05/14/21 16:12 16:12 23:15 WBC RBC Hgb Hct MCV MCH MCHC RDW Plt Count Neut % (Auto) Lymph % (Auto) [place] % (Auto) Eos % (Auto) Baso % (Auto) Neut # (Auto) Lymph # (Auto) [place] # (Auto) Eos # (Auto) Baso # (Auto) D-Dimer Sodium Potassium Chloride Carbon Dioxide BUN Creatinine Estimated GFR BUN/Creatinine Ratio Glucose Lactate 1.0 Calcium Magnesium Total Bilirubin AST ALT Alkaline Phosphatase NT-Pro-B Natriuret Pep 49 Total Protein Albumin Globulin Albumin/Globulin Ratio Procalcitonin 0.30 Nasal Screen MRSA (PCR) Negative for mrsa 05/15/21 05:00 WBC RBC Hgb Hct MCV MCH MCHC RDW Plt Count Neut % (Auto) Lymph % (Auto) [place] % (Auto) Eos % (Auto) Baso % (Auto) Neut # (Auto) Lymph # (Auto) [place] # (Auto) Eos # (Auto) Baso # (Auto) D-Dimer Sodium 132 L Potassium 5.0 Chloride 97 L Carbon Dioxide 29 BUN 11 Creatinine 0.76 Estimated GFR > 60.0 BUN/Creatinine Ratio 14.5 Glucose 165 H Lactate Calcium 8.3 L Magnesium Total Bilirubin 0.5 AST 173 H ALT 160 H Alkaline Phosphatase 53 NT-Pro-B Natriuret Pep Total Protein 7.0 Albumin 3.8 Globulin 3.2 Albumin/Globulin Ratio 1.2 Procalcitonin Nasal Screen MRSA (PCR) [facility] Medical History (Updated 05/14/21 @ 17:23 by Ammy Arboleda MD) Anxiety Asthma Hyperlipidemia Liver disease Migraines Obesity Personality disorder Surgical History Status post delivery Status post surgery (04/20/11) Family History Mother DM (diabetes mellitus screen) Hypertension Social History marital status: household members: spouse and children Smoking Status: Former smoker alcohol intake: current substance use type: does not use Assessment & Plan Assessment & Plan narrative: Pt is a 46yo woman with PCOS, HTN, asthma without recent exacerbation, depression, and chronic osteomyelitis who presented with worsening SOB and cough.? Tested positive for COVID 7 days ago on multiple tests, not repeated in the ED here.? Pt also with evidence of asthma exacerbation.? 1)? COVID pneumonia:? CXR consistent with pneumonia, however not grossly bacterial in appearance at this time. O2 requirement increased to 4L overnight, now down to 3L with O2 sat around 96% at rest but desaturations with movement. - Dexamethasone daily - Discussed Remdesivir in detail, including risks vs benefits. Will hold on starting at this time. - RT consulted - Zofran PRN for nausea - Mucinex, Percocet PRN for cough - Tylenol and Ibuprofen PRN for fever, s/p one dose Toradol in the ED 2)? Acute asthma exacerbation:? Significantly decreased air movement and significant wheezing. Improved slightly from yesterday. - Continue home inhalers - Dexamethasone as above - Duonebs PRN 3)? Hyponatremia:? Acute.? Sodium 129 at admission, improved to 132 this morning. s/p 1L NS bolus in the ED - Continue gentle hydration at 75cc/hr overnight, like to keep COVID pts from fluid overload. Pt also with very little PO intake yet. - Repeat BMP in the AM 4)? Elevated liver enzymes:? Most likely due to COVID. Stable to improving slightly. - Will continue to trend 5)? Chronic osteomyelitis: - Continue home Vancomycin via PICC, Augmentin - Hesitantly continue home Fluconazole, monitoring liver enzymes closely 6)? HTN: ?- Continue home Metoprolol, HCTZ 7)? PCOS: - Continue home Metformin, Spirinolactone 8)? Depression: - Continue home Wellbutrin Code:? Full Diet:? Regular DVT ppx:? Lovenox Dispo:? Pending improvement in respiratory status.? High risk for decompensation due to asthma. Time Spent With Patient Critical Care time: I spent a total of [] minutes of critical care time on this patient's care today; this time is exclusive of procedural time. Quality VTE Deep Vein Thrombosis/Pulmonary Embolism Present on Admission: No
[2021-05-15 17:05] LABS: Vancomycin Trough 20.5 ug/mL (10-20)
[2021-05-15] MEDS: VANCOMYCIN 1,250 MG/250 ML PIGGYBACK 100 MG IV (20:20)
[2021-05-15] MEDS: SPIRONOLACTONE 25 MG TABLET 50 MG PO (20:21)
[2021-05-15] MEDS: CODEINE/GUAIFENESIN LIQUID 5ML UDC 5 ML PO (20:22)
[2021-05-15] MEDS: TRAZODONE 50 MG TABLET 100 MG PO (20:22)
--- NOTE | 2021-05-15 23:31 | RT ---
patient having tremors from the Q4WA duoneb tx's. I changed her order to atrovent Q4WA and made albuterol just PRN
[2021-05-16] VITALS (12 sets, daily range): BP systolic 108–138; BP diastolic 62–93; PULSE 64–106; RESP 17–26; TEMP 36.2–37.3; O2SAT 92–98
[2021-05-16] MEDS: SODIUM CHLORIDE 0.9% 1,000 ML 75 ML IV (00:13)
[2021-05-16] MEDS: HYDROCODONE/ACET 5/325 TABLET 1 TAB PO ×4 (00:48→17:47)
[2021-05-16] MEDS: VANCOMYCIN 1,250 MG/250 ML PIGGYBACK 100 MG IV ×3 (04:48→20:32)
[2021-05-16 05:26] LABS: Alanine Aminotransferase 136 IU/L (<35); Albumin 3.9 g/dL (3.5-5.0); Albumin Globulin Ratio 1.1 (1.0-2.8); Alkaline Phosphatase 61 U/L (38-126); Aspartate Aminotransferase 108 IU/L (14-36); BUN Creatinine Ratio 9.9 (6-22); Bilirubin Total 0.5 mg/dL (0.2-1.3); Blood Urea Nitrogen 7 mg/dL (7-17); Calcium 8.9 mg/dL (8.4-10.2); Carbon Dioxide 28 mmol/L (22-32); Chloride 102 mmol/L (98-107); Estimated Glomerular Filt Rate > 60.0 mL/min (>60); Globulin 3.4 g/dL (1.7-4.1); Glucose 129 mg/dL (70-100); HEMOLYSIS < 15 (0-50); Potassium 4.5 mmol/L (3.4-5.1); Sodium 137 mmol/L (137-145); Total Protein 7.3 g/dL (6.3-8.2)
[2021-05-16] MEDS: CODEINE/GUAIFENESIN LIQUID 5ML UDC 5 ML PO ×3 (06:00→17:47)
--- NOTE | 2021-05-16 06:48 | PC.NURSE ---
Shift Note-Patient proned part of the night, did side-lying also, on 3L NC, says she feels winded after ambulating to the BR, desats to mid 80s,recovers quickly to >92%, continues to have intermittent painful cough, codeine elixer and [place] given per prn.
[2021-05-16] MEDS: ENOXAPARIN 40 MG/0.4 ML SYRINGE SUBCUT (08:37)
[2021-05-16] MEDS: buPROPion SR 150 MG TAB PO (08:38)
[2021-05-16] MEDS: guaiFENesin ER 600 MG TAB 1200 MG PO ×2 (08:38→20:32)
[2021-05-16] MEDS: FLUCONAZOLE 100 MG TABLET 400 MG PO (08:38)
[2021-05-16] MEDS: METFORMIN HCL 500 MG TABLET PO ×2 (08:39→20:33)
[2021-05-16] MEDS: SPIRONOLACTONE 25 MG TABLET 75 MG PO (08:39)
[2021-05-16] MEDS: METOPROLOL ER 25 MG TABLET PO (08:39)
[2021-05-16] MEDS: AMOXICILLIN/CLAV 875/125 MG 1 TAB PO ×2 (08:40→20:32)
[2021-05-16] MEDS: DEXAMETHASONE 10 MG/ML VIAL 6 MG IV (08:40)
[2021-05-16] MEDS: hydroCHLOROthiazide 25 MG TABLET PO (08:40)
--- NOTE | 2021-05-16 09:19 | DI.RAD.S_ITS ---
PROCEDURE: XR CHEST 1V INDICATIONS: increasing crackles bases, COVID TECHNIQUE: One view of the chest was acquired. COMPARISON: [facility], JANIYA, CHEST 2 VIEW, 05/23/2013, 16:38. [facility], JANIYA, XR CHEST 1V, 05/14/2021, 16:01. FINDINGS: Surgical changes and devices: None. Lungs and pleura: Low lung volumes with worsening bilateral interstitial infiltrates can be seen. No pleural effusions or pneumothorax. Mediastinum: Mediastinal contours appear normal. Heart size is normal. Bones and chest wall: No suspicious bony lesions. Overlying soft tissues appear unremarkable. IMPRESSION: Worsening bilateral interstitial infiltrates are seen, which are consistent with the given history of COVID pneumonia. Dictated by: Jamal Donohue M.D. on 05/16/2021 at 8:45 Approved by: Jamal Donohue M.D. on 05/16/2021 at 8:47
--- NOTE | 2021-05-16 09:20 | PM.PN.1 ---
Subjective Subjective Date Patient Seen: 05/16/21 Time Patient Seen: 08:15 Interval history: The pt reports feeling worse this morning. She states that rising to the restroom is very painful, as is transitioning from prone to other positions. Her cough remains persistent. Exam Vital Signs (past 8 hours): - 05/16/21 02:46 05/16/21 05:00 05/16/21 08:00 Temperature 97.1 F L 99.2 F Pulse Rate 91 H 106 H Respiratory Rate 26 H 20 Blood Pressure 109/70 133/86 Pulse Oximetry 95 96 93 05/16/21 08:39 Temperature Pulse Rate 106 H Respiratory Rate Blood Pressure 133/86 Pulse Oximetry Oxygen Delivery Method Nasal Cannula Oxygen Flow Rate 2 Narrative Exam Narrative: Gen:? NAD, laying in bed, appears sweaty CV:? RRR, no murmurs Resp:? decreased air movement stable from yesterday, crackles bilateral bases, no wheezing Ext:? no edema Objective Labs Result Diagrams: 05/14/21 16:12 05/16/21 04:56 Labs: Laboratory Results - last 24 hr 05/15/21 05/16/21 15:40 04:56 Sodium 137 Potassium 4.5 Chloride 102 Carbon Dioxide 28 BUN 7 Creatinine 0.71 Estimated GFR > 60.0 BUN/Creatinine Ratio 9.9 Glucose 129 H Calcium 8.9 Total Bilirubin 0.5 AST 108 H ALT 136 H Alkaline Phosphatase 61 Total Protein 7.3 Albumin 3.9 Globulin 3.4 Albumin/Globulin Ratio 1.1 Vancomycin Trough 20.5 H* [facility] Medical History (Updated 05/14/21 @ 17:23 by Ammy Arboleda MD) Anxiety Asthma Hyperlipidemia Liver disease Migraines Obesity Personality disorder Surgical History Status post delivery Status post surgery (04/20/11) Family History Mother DM (diabetes mellitus screen) Hypertension Social History marital status: household members: spouse and children Smoking Status: Former smoker alcohol intake: current substance use type: does not use Assessment & Plan Assessment & Plan narrative: Pt is a 46yo woman with PCOS, HTN, asthma without recent exacerbation, depression, and chronic osteomyelitis who presented with worsening SOB and cough.? Tested positive for COVID 7 days ago on multiple tests, not repeated in the ED here.? Pt also with evidence of asthma exacerbation.? 1)? COVID pneumonia:? CXR consistent with pneumonia, however not grossly bacterial in appearance at this time.? O2 requirement increased to 4L the initial night, now 2-3L. Still desats with movement but then recovers relatively quickly. - Dexamethasone daily - Discussed Remdesivir in detail, including risks vs benefits.? Will continue to hold. - RT consulted - Zofran PRN for nausea - Mucinex, Percocet PRN for cough - Tylenol and Ibuprofen PRN for fever, s/p one dose Toradol in the ED - Repeat CXR this morning due to increased crackles on exam 2)? Acute asthma exacerbation:? Significantly decreased air movement stable, wheezing resolved. - Continue home inhalers - Dexamethasone as above - Duonebs PRN 3)? Hyponatremia:? Acute.? Sodium 129 at admission, now normalized. - d/c IVF 4)? Elevated liver enzymes:? Most likely due to COVID.? Improving. - Will continue to trend 5)? Chronic osteomyelitis: - Continue home Vancomycin via PICC, Augmentin - Continue home Fluconazole, monitoring liver enzymes closely 6)? HTN: ?- Continue home Metoprolol, HCTZ 7)? PCOS: - Continue home Metformin, Spirinolactone 8)? Depression: - Continue home Wellbutrin - Addition Hydroxyzine due to increased anxiety from admission Code:? Full Diet:? Regular DVT ppx:? Lovenox Dispo:? Pending improvement in respiratory status.? High risk for decompensation due to asthma. Hopeful can wean from O2 prior to d/c, but may ultimately need d/c with home oxygen temporarily. Time Spent With Patient Critical Care time: I spent a total of [] minutes of critical care time on this patient's care today; this time is exclusive of procedural time. Quality VTE Deep Vein Thrombosis/Pulmonary Embolism Present on Admission: No
[2021-05-16] MEDS: hydrOXYzine pamoate 25 MG CAPSULE 50 MG PO (09:46)
[2021-05-16] MEDS: BUDESONIDE 0.5 MG/2 ML NEB INH (10:00)
[2021-05-16 12:08] LABS: Vancomycin Trough 13.9 ug/mL (10-20)
[2021-05-16] MEDS: VANCOMYCIN TROUGH 1 REQUEST MISC (12:40)
[2021-05-16] MEDS: VANCOMYCIN PEAK 1 REQUEST MISC (14:00)
--- NOTE | 2021-05-16 15:11 | CM.IDA ---
Initial DCP Assessment Note Pt is a 46 yo female, resident of [place], arrives w/persistent and increasing symptoms from COVID-19 pneumonia/ SOB and cough. PMH includes asthma without recent exacerbation, depression, and chronic osteomyelitis. Patient tested positive for COVID 7 days ago on multiple tests PCP: Bruno Grider Payer: Felipe Reviewed chart, spoke w/ SADE Escamilla. Multiple attempts to speak w/patient by phone but patient either sleeping or in the middle of patient care. Patient lives in [place] w/family, indp and active at baseline, works for [employer]. Patient currently receiving Vanco tid, which is managed by [facility], for Osteo in her Rt thumb. Patient appears to be established at wound care center by Dr Ortiz. Plan: Patient is expected to DC back home w/family when medically cleared; may need home O2 if cannot be weaned here before DC. SADE Escamilla notes patient's anxiety appears to contribute to her complaints of SOB; Hydroxyzine added to med list due to increased anxiety BENIGNO Solis Discharge Planning/Care Management CM Discharge Assessment Start: 05/16/21 15:01 Freq: Status: Active Protocol: Document 05/16/21 15:01 MAURI (Rec: 05/16/21 15:11 MAURI [id number]) Discharge Planning Assessment Assigned [place] [employer] BENIGNO Meneses DPOA/Assigned Designee Name Orlando Cyr, spouse Contact Information [phone] Advance Directives? No Advance Directives on File No History Provided By Patient Prior Living Arrangements House Household Members spouse,children Type of transporation used prior to Drives own vehicle admit Independent with ADL's Yes Is patient alert and oriented? Yes Barriers to Discharge No Comment None identified at this time.. .DC home w/family once patient is medically cleared. Will likely continue home infusion through [facility] for chronic Osteo in her finger. Patient may need home O2 if unable to wean while admitted. Discharge Plan Home Transportation Arrangement Family Referrals Initiated None needed Additional Comment At this time
[2021-05-16 16:36] LABS: Vancomycin Peak 27.3 ug/mL (20-40)
[2021-05-16] MEDS: TRAZODONE 50 MG TABLET 100 MG PO (20:32)
[2021-05-16] MEDS: SPIRONOLACTONE 25 MG TABLET 50 MG PO (20:33)
[2021-05-16] MEDS: IBUPROFEN 600 MG TABLET PO (21:51)
[2021-05-17] VITALS (17 sets, daily range): BP systolic 106–141; BP diastolic 64–80; PULSE 72–92; RESP 17–30; TEMP 36.6–37.1; O2SAT 85–97
[2021-05-17] MEDS: VANCOMYCIN 1,250 MG/250 ML PIGGYBACK 100 MG IV (04:29)
[2021-05-17] MEDS: CODEINE/GUAIFENESIN LIQUID 5ML UDC 5 ML PO ×2 (04:31→21:01)
--- NOTE | 2021-05-17 06:33 | PC.NURSE ---
Shift Note-Patient slept on Lt side most of the night, proned occasionally for short amount of time. NC at 2L, SpO2 90-99% at rest, desats to mid 80s while ambulating, recovers quickly, ibuprofen given for headache-effective, codeine elixer given for cough.
[2021-05-17] MEDS: AMOXICILLIN/CLAV 875/125 MG 1 TAB PO ×2 (07:55→21:00)
[2021-05-17] MEDS: buPROPion SR 150 MG TAB PO (07:55)
[2021-05-17] MEDS: METFORMIN HCL 500 MG TABLET PO ×2 (07:55→21:00)
[2021-05-17] MEDS: FLUCONAZOLE 100 MG TABLET 400 MG PO (07:55)
[2021-05-17] MEDS: METOPROLOL ER 25 MG TABLET PO (07:56)
[2021-05-17] MEDS: SPIRONOLACTONE 25 MG TABLET 75 MG PO (07:56)
[2021-05-17] MEDS: DEXAMETHASONE 10 MG/ML VIAL 6 MG IV (07:57)
[2021-05-17] MEDS: hydroCHLOROthiazide 25 MG TABLET PO (07:57)
[2021-05-17] MEDS: guaiFENesin ER 600 MG TAB 1200 MG PO ×2 (07:57→21:01)
[2021-05-17] MEDS: ENOXAPARIN 40 MG/0.4 ML SYRINGE SUBCUT (07:57)
--- NOTE | 2021-05-17 08:05 | PM.PN.1 ---
Subjective Subjective Date Patient Seen: 05/17/21 Time Patient Seen: 08:06 Interval history: Patient is feeling poorly this morning. Reports that she has no energy and no appetite. She is trying to eat a little bit. Up to ambulate to the bathroom only. Says that she can not breathe but does this while she is talking fluently. She is on 2 L currently, oxygen saturation 97%. Exam Vital Signs (past 8 hours): - 05/17/21 05:00 05/17/21 07:52 Temperature 98.2 F Pulse Rate 72 92 H Respiratory Rate 22 18 Blood Pressure 106/64 133/79 Pulse Oximetry 91 97 Oxygen Delivery Method Nasal Cannula Oxygen Flow Rate 2 Narrative Exam Narrative: GENERAL: Alert and oriented, appearing stated age and in no acute distress. HEENT: Head normocephalic/atraumatic. Extraocular movements intact. LUNGS: Coarse breath sounds heard throughout. Crackles in bases bilaterally. CV: Normal S1 and S2 with regular rate and rhythm, no audible murmurs, rubs or gallops. ABDOMEN: Soft, non-tender, non-distended, no organomegaly. Positive bowel sounds. EXTREMITIES: No clubbing, cyanosis, or edema. NEURO: Cranial nerves II through XII grossly intact, no focal deficits. PSYCH: Alert and oriented x 3. SKIN: PICC line in place, no signs of infection. Objective Labs Result Diagrams: 05/14/21 16:12 05/16/21 04:56 Labs: Laboratory Results - last 24 hr 05/16/21 05/16/21 11:40 16:05 Vancomycin Peak 27.3 Vancomycin Trough 13.9 PFSH Medical History (Updated 05/14/21 @ 17:23 by Ammy Arboleda MD) Anxiety Asthma Hyperlipidemia Liver disease Migraines Obesity Personality disorder Surgical History Status post delivery Status post surgery (04/20/11) Family History Mother DM (diabetes mellitus screen) Hypertension Social History marital status: household members: spouse and children Smoking Status: Former smoker alcohol intake: current substance use type: does not use Assessment & Plan Assessment & Plan narrative: 46 yo woman with PCOS, HTN, asthma without recent exacerbation, depression, and chronic osteomyelitis who presented with worsening SOB and cough.? Tested positive for COVID 8 days ago on multiple home tests, not repeated in the ED here.? Patient also with evidence of asthma exacerbation.? 1)? COVID pneumonia:? O2 requirement 2-4L, currently at 2L, desats with movement but recovers quickly.? CXR yesterday showed worsening bilateral infiltrates. - Dexamethasone daily - Holding remdesivir due to duration of symptoms and late presentation - RT consulting - Zofran PRN for nausea - Mucinex, Percocet PRN for cough - Tylenol and Ibuprofen PRN for fever, s/p one dose Toradol in the ED - Repeat CXR tomorrow morning for trend. - Will add ativan for air hunger. 2)? Acute asthma exacerbation, stable - Continue home inhalers - Dexamethasone as above - Duonebs PRN 3)? Elevated liver enzymes:? Most likely due to COVID.? Improving. - AM labs pending, will continue to trend 4)? Chronic osteomyelitis - Continue home Vancomycin via PICC, Augmentin - Continue home Fluconazole, monitoring liver enzymes closely 5)? Hyertension ?- Continue home Metoprolol, HCTZ 6)? PCOS - Continue home Metformin, Spirinolactone 7)? Depression - Continue home Wellbutrin - Addition of Hydroxyzine due to increased anxiety from admission Code:? Full Diet:? Regular DVT ppx:? Lovenox Dispo:? Anticipate at least 1-2 more nights in the hospital, pending progression of pneumonia. Will consider discharging on home oxygen if otherwise stable. Quality VTE Deep Vein Thrombosis/Pulmonary Embolism Present on Admission: No
--- NOTE | 2021-05-17 10:29 | PC.NURSE ---
Patient SBA to bathroom, gait steady. Sats on 1.5L 93-98% while at rest, after ambulation sats 87% but recovered to 94-95% within a few minutes. C/o headache, given 600mg ibuprofen.
[2021-05-17] MEDS: IBUPROFEN 600 MG TABLET PO (10:31)
[2021-05-17] MEDS: SODIUM CHLORIDE 0.9% FLUSH 10 ML IV ×3 (10:31→21:45)
[2021-05-17 10:40] LABS: Alanine Aminotransferase 135 IU/L (<35); Albumin 3.8 g/dL (3.5-5.0); Albumin Globulin Ratio 1.1 (1.0-2.8); Alkaline Phosphatase 79 U/L (38-126); Aspartate Aminotransferase 89 IU/L (14-36); BUN Creatinine Ratio 13.3 (6-22); Bilirubin Total 0.6 mg/dL (0.2-1.3); Blood Urea Nitrogen 10 mg/dL (7-17); Calcium 9.2 mg/dL (8.4-10.2); Carbon Dioxide 30 mmol/L (22-32); Chloride 99 mmol/L (98-107); Estimated Glomerular Filt Rate > 60.0 mL/min (>60); Globulin 3.4 g/dL (1.7-4.1); Glucose 131 mg/dL (70-100); HEMOLYSIS < 15 (0-50); Potassium 3.9 mmol/L (3.4-5.1); Sodium 135 mmol/L (137-145); Total Protein 7.2 g/dL (6.3-8.2)
[2021-05-17] MEDS: BUDESONIDE 0.5 MG/2 ML NEB INH ×2 (10:50→21:15)
[2021-05-17] MEDS: IPRATROPIUM 0.5 MG/2.5 ML NEB INH ×3 (10:50→21:15)
[2021-05-17] MEDS: VANCOMYCIN 1,250 MG/250 ML PIGGYBACK 250 MG IV ×2 (12:01→19:58)
[2021-05-17] MEDS: HYDROCODONE/ACET 5/325 TABLET 1 TAB PO ×2 (12:05→21:01)
--- NOTE | 2021-05-17 17:00 | DI.RAD.S_ITS ---
PROCEDURE: XR CHEST 2V INDICATIONS: COVID PNA, worsening dyspnea TECHNIQUE: 2 views of the chest were acquired. COMPARISON: [facility], CR, XR CHEST 1V, 05/14/2021, 16:01. [facility], CR, XR CHEST 1V, 05/16/2021, 9:25. FINDINGS: Surgical changes and devices: There is a stable left-sided PICC line. Lungs and pleura: Bilateral interstitial infiltrates are seen, which are worse than on the 05/16/2021 examination. No pneumothorax or pleural effusion can be seen. Mediastinum: Mediastinal contours are normal. Heart size is normal. Bones and chest wall: No suspicious bony abnormalities. Soft tissues appear unremarkable. IMPRESSION: Worsening bilateral interstitial infiltrates are seen, which are consistent with the given clinical history of COVID pneumonia. Dictated by: Jamal Donohue M.D. on 05/17/2021 at 16:33 Approved by: Jamal Donohue M.D. on 05/17/2021 at 16:34
[2021-05-17] MEDS: TRAZODONE 50 MG TABLET 100 MG PO (21:00)
[2021-05-17] MEDS: SPIRONOLACTONE 25 MG TABLET 50 MG PO (21:01)
[2021-05-17] MEDS: LORazepam 2 MG/ML INJ 1 MG IV (21:01)
[2021-05-18] VITALS (17 sets, daily range): BP systolic 111–135; BP diastolic 58–80; PULSE 59–110; RESP 18–40; TEMP 36.8–37; O2SAT 85–96
[2021-05-18] MEDS: VANCOMYCIN 1,250 MG/250 ML PIGGYBACK 250 MG IV ×3 (03:33→20:05)
[2021-05-18] MEDS: ALBUTEROL 2.5 MG/3 ML NEB (ADULT) INH (04:04)
--- NOTE | 2021-05-18 04:09 | PC.NURSE ---
shift note: Pt proned most of this shift, @ 0400 Pt RR 32, taking small shallow breaths, Erickson breath sounds with fine crackles, diminished in the bases. O2 increased to 5L high flow nasal cannula. Requested resp tx. encouraged pt to side lie when not proned and to avoid supine position.
[2021-05-18 05:32] LABS: Add Manual Diff / Slide Review NO; Basophils Absolute Auto 0 /uL (0-100); Eosinophils Absolute Auto 0 /uL (0-450); Hemoglobin 13.4 g/dL (12.0-16.0); Lymphocytes Absolute Auto 500 /uL (1100-4500); Lymphocytes Percent Auto 7.9 % (25-40); Mean Corpuscular HGB Conc 34.4 % (30-36); Mean Corpuscular Hemoglobin 31.8 PG (26-34); Mean Corpuscular Volume 92.6 fL (80-100); Monocytes Absolute Auto 500 /uL (0-900); Monocytes Percent Auto 9.1 % (3-14); Neutrophils Absolute Auto 4800 /uL (1500-7000); Platelet Count 309 X10^3/uL (150-400); Red Blood Cell Count 4.22 X10^6/uL (4.0-5.2); Red Cell Distribution Width 12.9 % (11.6-14.8); White Blood Cell Count 5.8 X10^3/uL (4.5-11.0)
[2021-05-18 05:36] LABS: Alanine Aminotransferase 137 IU/L (<35); Albumin Globulin Ratio 1.1 (1.0-2.8); Alkaline Phosphatase 99 U/L (38-126); Aspartate Aminotransferase 84 IU/L (14-36); Bilirubin Total 0.6 mg/dL (0.2-1.3); Blood Urea Nitrogen 12 mg/dL (7-17); Calcium 9.6 mg/dL (8.4-10.2); Carbon Dioxide 29 mmol/L (22-32); Chloride 97 mmol/L (98-107); Estimated Glomerular Filt Rate > 60.0 mL/min (>60); Globulin 3.8 g/dL (1.7-4.1); Glucose 118 mg/dL (70-100); HEMOLYSIS < 15 (0-50); Potassium 4.6 mmol/L (3.4-5.1); Sodium 134 mmol/L (137-145); Total Protein 7.8 g/dL (6.3-8.2)
--- NOTE | 2021-05-18 08:00 | PM.PN.1 ---
Subjective Subjective Date Patient Seen: 05/18/21 Time Patient Seen: 08:00 Interval history: Nursing reports that patient has not been fully compliant with prone positioning, only did 5 hours yesterday; oxygen saturations did improve with prone positioning. However, when she lies on her back, she feels worse and this morning, reports that her breathing is worse. Nursing reports high anxiety. She is questioning why she is here and why this happened to her; reports that she does understand that she has COVID. She is on 6-7 L now, up from 2 L yesterday during the day. This is an overnight change but improving as this is note is being written. Reports that her appetite remains poor but that she is able to eat without difficulty. Not drinking as much, feels thirsty. She is not ambulating due to her dyspnea. Exam Vital Signs (past 8 hours): - 05/18/21 04:00 05/18/21 04:04 Temperature 98.6 F Pulse Rate 96 H 96 H Respiratory Rate 24 24 Blood Pressure 135/80 Pulse Oximetry 93 93 Oxygen Delivery Method Nasal Cannula Oxygen Flow Rate 5 Narrative Exam Narrative: GENERAL:? Alert and oriented, appearing stated age and in no acute distress. HEENT:? Head normocephalic/atraumatic.? Extraocular movements intact. LUNGS:? Coarse breath sounds heard throughout.? Crackles in bases bilaterally. CV:? Normal S1 and S2 with regular rate and rhythm, no audible murmurs, rubs or gallops. ABDOMEN:? Soft, non-tender, non-distended, no organomegaly.? Positive bowel sounds. EXTREMITIES:? No clubbing, cyanosis, or edema. NEURO:? Cranial nerves II through XII grossly intact, no focal deficits. PSYCH:? Alert and oriented x 3. SKIN:? PICC line in place, no signs of infection. Objective Labs Result Diagrams: 05/18/21 05:15 05/18/21 05:15 Labs: Laboratory Results - last 24 hr 05/17/21 05/18/21 05/18/21 09:30 05:15 05:15 WBC 5.8 RBC 4.22 Hgb 13.4 Hct 39.0 MCV 92.6 MCH 31.8 MCHC 34.4 RDW 12.9 Plt Count 309 Neut % (Auto) 83.0 H Lymph % (Auto) 7.9 L [place] % (Auto) 9.1 Eos % (Auto) 0.0 L Baso % (Auto) 0.0 Neut # (Auto) 4800 Lymph # (Auto) 500 L [place] # (Auto) 500 Eos # (Auto) 0 Baso # (Auto) 0 Sodium 135 L 134 L Potassium 3.9 4.6 Chloride 99 97 L Carbon Dioxide 30 29 BUN 10 12 Creatinine 0.75 0.80 Estimated GFR > 60.0 > 60.0 BUN/Creatinine Ratio 13.3 15.0 Glucose 131 H 118 H Calcium 9.2 9.6 Total Bilirubin 0.6 0.6 AST 89 H 84 H ALT 135 H 137 H Alkaline Phosphatase 79 99 Total Protein 7.2 7.8 Albumin 3.8 4.0 Globulin 3.4 3.8 Albumin/Globulin Ratio 1.1 1.1 [facility] Medical History (Updated 05/14/21 @ 17:23 by Ammy Arboleda MD) Anxiety Asthma Hyperlipidemia Liver disease Migraines Obesity Personality disorder Surgical History Status post delivery Status post surgery (04/20/11) Family History Mother DM (diabetes mellitus screen) Hypertension Social History marital status: household members: spouse and children Smoking Status: Former smoker alcohol intake: current substance use type: does not use Assessment & Plan Assessment & Plan narrative: 46 yo woman with PCOS, HTN, asthma without recent exacerbation, depression, and chronic osteomyelitis who presented with worsening SOB and cough.? Tested positive for COVID 9 days ago on multiple home tests, not repeated in the ED here.? Patient also with evidence of asthma exacerbation.? 1)? COVID pneumonia:? O2 requirement now increasing but not fully compliant with prone positioning, CXR yesterday again showed worsening bilateral infiltrates. - Dexamethasone daily, continue - Will start remdesivir - RT consulting - Zofran PRN for nausea - Mucinex, Percocet PRN for cough - Tylenol and Ibuprofen PRN for fever, s/p one dose Toradol in the ED - Continue ativan for air hunger, changing from IV to PO today. - Emphasized importance of prone positioning, goal > 18 hours per day. Patient demonstrated understanding and willingness to prone today. 2)? Acute asthma exacerbation, stable - Continue home inhalers - Dexamethasone as above - Duonebs PRN 3)? Elevated liver enzymes, improving. - Numbers stable, will continue to trend 4)? Chronic osteomyelitis - Continue home Vancomycin via PICC, Augmentin - Continue home Fluconazole, monitoring liver enzymes closely 5) Hyponatremia and hypochloremia, mild but trending down again - Will give slow infusion of 500 cc of NS today and trend labs. - If trending down again tomorrow, consider discontinuing HCTZ. 6)? Hyertension ?- Continue home Metoprolol, HCTZ 7)? PCOS - Continue home Metformin, Spirinolactone 8)? Depression - Continue home Wellbutrin - Addition of Hydroxyzine due to increased anxiety from admission 9) Anxiety, new but suspect some level at baseline and exacerbated by COVID dyspnea - Ativan as above. Code:? Full Diet:? Regular DVT ppx:? Lovenox Dispo:? Anticipate at least 1-2 more nights in the hospital. Quality VTE Deep Vein Thrombosis/Pulmonary Embolism Present on Admission: No
[2021-05-18] MEDS: AMOXICILLIN/CLAV 875/125 MG 1 TAB PO ×2 (08:38→20:05)
[2021-05-18] MEDS: ENOXAPARIN 40 MG/0.4 ML SYRINGE SUBCUT (08:38)
[2021-05-18] MEDS: DEXAMETHASONE 10 MG/ML VIAL 6 MG IV (08:38)
[2021-05-18] MEDS: buPROPion SR 150 MG TAB PO (08:38)
[2021-05-18] MEDS: SPIRONOLACTONE 25 MG TABLET 75 MG PO (08:39)
[2021-05-18] MEDS: LORazepam 1 MG TABLET 2 MG PO (08:39)
[2021-05-18] MEDS: FLUCONAZOLE 100 MG TABLET 400 MG PO (08:39)
[2021-05-18] MEDS: guaiFENesin ER 600 MG TAB 1200 MG PO ×2 (08:40→20:05)
[2021-05-18] MEDS: METFORMIN HCL 500 MG TABLET PO ×2 (08:40→20:05)
[2021-05-18] MEDS: METOPROLOL ER 25 MG TABLET PO (08:40)
[2021-05-18] MEDS: hydroCHLOROthiazide 25 MG TABLET PO (08:41)
[2021-05-18] MEDS: HYDROCODONE/ACET 5/325 TABLET 1 TAB PO ×2 (08:42→13:16)
[2021-05-18] MEDS: IPRATROPIUM 0.5 MG/2.5 ML NEB INH ×2 (08:59→15:15)
[2021-05-18] MEDS: BUDESONIDE 0.5 MG/2 ML NEB INH (08:59)
[2021-05-18] MEDS: REMDESIVIR 200 MG in SODIUM CHLORIDE 0.9% 210 ML 250 ML IV (11:42)
[2021-05-18] MEDS: SODIUM CHLORIDE 0.9% FLUSH 10 ML IV ×2 (11:43→20:06)
[2021-05-18] MEDS: SODIUM CHLORIDE 0.9% 500 ML 100 ML IV (11:44)
[2021-05-18] MEDS: CODEINE/GUAIFENESIN LIQUID 5ML UDC 5 ML PO (13:15)
[2021-05-18] MEDS: hydrOXYzine pamoate 25 MG CAPSULE 50 MG PO (13:16)
--- NOTE | 2021-05-18 15:58 | PC.NURSE ---
Addendum entered by Jeniffer Fishman R.N. 05/18/21 18:47: PT DECLINES TO HAVE PICC LINE DRESSING CHANGE WHICH IS DUE THIS DATE- UNABLE TO CONVINCE HER TO ALLOW THIS RN TO CHANGE - WILL UPDATE NEXT SHIFT Original Note: pt tolerating 5L hfnc well when medicated for anxiety and prone - was at one point this shift 100% on 3L during proning - when awake she breaths very shallow and tachypneic-almost tearful- anxiety obviously an issue- when attempting to discuss plan of care pt repeats why is this happening to me what is going on - explained at length, re: covid pneumonia and the course of care- uncertain of her understanding- will continue to update and inform upon each interaction
[2021-05-18] MEDS: TRAZODONE 50 MG TABLET 100 MG PO (20:05)
[2021-05-18] MEDS: SPIRONOLACTONE 25 MG TABLET 50 MG PO (20:05)
--- NOTE | 2021-05-18 23:53 | PC.NURSE ---
Pt refused PICC derssing change again. Pt educated on importance of infection prevention and proper care of lines. Per pt, maybe in the morning, citing fatigue and stress r/t family issues.
[2021-05-19] VITALS (38 sets, daily range): BP systolic 122–137; BP diastolic 71–80; PULSE 68–97; RESP 16–24; TEMP 36.4–37.1; O2SAT 77–97
[2021-05-19] MEDS: VANCOMYCIN 1,250 MG/250 ML PIGGYBACK 250 MG IV ×3 (03:28→20:53)
[2021-05-19 05:26] LABS: Hematocrit 38.2 % (36-46); Mean Corpuscular HGB Conc 34.2 % (30-36); Mean Corpuscular Hemoglobin 31.5 PG (26-34); Mean Corpuscular Volume 92.3 fL (80-100); Platelet Count 373 X10^3/uL (150-400); Red Blood Cell Count 4.14 X10^6/uL (4.0-5.2); Red Cell Distribution Width 12.8 % (11.6-14.8); White Blood Cell Count 6.3 X10^3/uL (4.5-11.0)
[2021-05-19 05:27] LABS: Add Manual Diff / Slide Review YES
[2021-05-19 05:31] LABS: Alanine Aminotransferase 122 IU/L (<35); Albumin 3.6 g/dL (3.5-5.0); Alkaline Phosphatase 89 U/L (38-126); Aspartate Aminotransferase 71 IU/L (14-36); BUN Creatinine Ratio 21.2 (6-22); Bilirubin Total 0.6 mg/dL (0.2-1.3); Blood Urea Nitrogen 14 mg/dL (7-17); Calcium 9.2 mg/dL (8.4-10.2); Carbon Dioxide 27 mmol/L (22-32); Chloride 100 mmol/L (98-107); Estimated Glomerular Filt Rate > 60.0 mL/min (>60); Globulin 3.5 g/dL (1.7-4.1); Glucose 111 mg/dL (70-100); HEMOLYSIS < 15 (0-50); Potassium 4.3 mmol/L (3.4-5.1); Sodium 131 mmol/L (137-145); Total Protein 7.1 g/dL (6.3-8.2)
[2021-05-19 07:29] LABS: Neutrophils Absolute Manual 4599 /uL (3000-5900); RBC Morphology Normal Morphology; Total Cells Counted 100
--- NOTE | 2021-05-19 07:36 | PM.PN.1 ---
Subjective Subjective Date Patient Seen: 05/19/21 Time Patient Seen: 07:36 Interval history: Patient seen and evaluated this morning. Discussed care with nursing staff. Patient states last night was a little bit better working on proning. Oxygen levels anywhere between 92 and 93. She is on 4-5 L of nasal cannula oxygen. Which she gets up and moves she becomes a little bit tachycardic and more short of breath. She says she is eating a little bit. As it times a little bit of anxiety and confusion with the difficulty with feeling stressed and nervous about her infection. She says she has a little bit of heartburn. Exam Vital Signs (past 8 hours): - 05/19/21 00:00 05/19/21 04:00 Temperature 98.0 F 98.7 F Pulse Rate 76 77 Respiratory Rate 23 23 Blood Pressure 126/75 124/71 Pulse Oximetry 92 93 Oxygen Delivery Method Nasal Cannula Oxygen Flow Rate 4 Narrative Exam Narrative: Gen.: Alert anxious know she is in the hospital obviously recognizes me. Complaining a little bit of heartburn. HEENT: Pupils equal round and reactive she is on nasal cannula. Oral mucosa is moist neck is supple Cardio: S1-S2 regular rate and rhythm no murmurs appreciated. Respiratory: Respiratory mild increased work of breathing. Abdomen: S1-S2 regular rate and rhythm Extremities: Full range of motion no appreciable weakness no cyanosis or edema. Neurologic: Grossly intact. Objective Labs Result Diagrams: 05/19/21 04:40 05/19/21 04:40 Labs: Laboratory Results - last 24 hr 05/19/21 05/19/21 04:40 04:40 WBC 6.3 RBC 4.14 Hgb 13.0 Hct 38.2 MCV 92.3 MCH 31.5 MCHC 34.2 RDW 12.8 Plt Count 373 Neut % (Auto) Not Reportable Lymph % (Auto) Not Reportable [place] % (Auto) Not Reportable Eos % (Auto) Not Reportable Baso % (Auto) Not Reportable Lymph # (Auto) Not Reportable [place] # (Auto) Not Reportable Baso # (Auto) Not Reportable Total Counted 100 Seg Neutrophils % 73.0 H Lymphocytes % (Manual) 3.0 L Atypical Lymphs % 6.0 H Monocytes % (Manual) 18.0 H Neutrophils # (Manual) 4599 RBC Morphology Normal morphology Sodium 131 L Potassium 4.3 Chloride 100 Carbon Dioxide 27 BUN 14 Creatinine 0.66 Estimated GFR > 60.0 BUN/Creatinine Ratio 21.2 Glucose 111 H Calcium 9.2 Total Bilirubin 0.6 AST 71 H ALT 122 H Alkaline Phosphatase 89 Total Protein 7.1 Albumin 3.6 Globulin 3.5 Albumin/Globulin Ratio 1.0 [facility] Medical History (Updated 05/14/21 @ 17:23 by Ammy Arboleda MD) Anxiety Asthma Hyperlipidemia Liver disease Migraines Obesity Personality disorder Surgical History Status post delivery Status post surgery (04/20/11) Family History Mother DM (diabetes mellitus screen) Hypertension Social History marital status: household members: spouse and children Smoking Status: Former smoker alcohol intake: current substance use type: does not use Assessment & Plan Assessment & Plan narrative: 1)? COVID pneumonia:? O2 requirements of stabilized. 4-6 L. Saturations between 93 and 94%. - Dexamethasone daily, continue -remdesivir 2nd dose today. - RT consulting - Zofran PRN for nausea - Mucinex, Percocet PRN for cough - Continue ativan as needed for anxiety -continue with prone positioning as this is working well 2)? Acute asthma exacerbation, stable - Dexamethasone as above -nebulizers per RT 3)? Elevated liver enzymes, improving. -history of mild liver enzyme elevation chronic stable. Diffuse fatty liver infiltrate. On a number medications that may inflamed liver will continue to monitor closely 4)? Chronic osteomyelitis - Continue home Vancomycin via PICC, Augmentin -peak and trough of vancomycin per pharmacy protocol 5)? Hyponatremia and hypochloremia, mild but trending down again -continue normal saline bolus. Stop hydrochlorothiazide. 6)? Hyertension ?- Continue home Metoprolol stop HCTZ 7)? PCOS - Continue home Metformin, Spirinolactone 8)? Depression/ Anxiety, not new and worsened by COVID. Continue with home medications with addition of lorazepam. Code:? Full DVT ppx:? Lovenox Dispo:? Ongoing need for hospitalization Time Spent With Patient Critical Care time: I spent a total of [] minutes of critical care time on this patient's care today; this time is exclusive of procedural time. Quality VTE Deep Vein Thrombosis/Pulmonary Embolism Present on Admission: No
[2021-05-19] MEDS: BUDESONIDE 0.5 MG/2 ML NEB INH (07:37)
[2021-05-19] MEDS: PANTOPRAZOLE DR 20 MG TABLET PO (09:15)
[2021-05-19] MEDS: AMOXICILLIN/CLAV 875/125 MG 1 TAB PO ×2 (09:17→20:54)
[2021-05-19] MEDS: SODIUM CHLORIDE 0.9% 1,000 ML 84 ML IV (09:17)
[2021-05-19] MEDS: buPROPion SR 150 MG TAB PO (09:17)
[2021-05-19] MEDS: DEXAMETHASONE 10 MG/ML VIAL 6 MG IV (09:18)
[2021-05-19] MEDS: guaiFENesin ER 600 MG TAB 1200 MG PO ×2 (09:19→20:54)
[2021-05-19] MEDS: ENOXAPARIN 40 MG/0.4 ML SYRINGE SUBCUT (09:19)
[2021-05-19] MEDS: FLUCONAZOLE 100 MG TABLET 400 MG PO (09:19)
[2021-05-19] MEDS: SODIUM CHLORIDE 0.9% FLUSH 10 ML IV ×2 (09:20→20:54)
[2021-05-19] MEDS: METOPROLOL ER 25 MG TABLET PO (09:20)
[2021-05-19] MEDS: SPIRONOLACTONE 25 MG TABLET 75 MG PO (09:20)
[2021-05-19] MEDS: METFORMIN HCL 500 MG TABLET PO ×2 (09:20→20:53)
[2021-05-19] MEDS: REMDESIVIR 100 MG in SODIUM CHLORIDE 0.9% 230 ML 250 ML IV (09:21)
[2021-05-19 12:58] LABS: Vancomycin Trough 11.5 ug/mL (10-20)
[2021-05-19] MEDS: IPRATROPIUM 0.5 MG/2.5 ML NEB INH (14:54)
[2021-05-19 18:00] LABS: Vancomycin Peak 19.8 ug/mL (20-40)
[2021-05-19] MEDS: TRAZODONE 50 MG TABLET 100 MG PO (20:53)
[2021-05-19] MEDS: SPIRONOLACTONE 25 MG TABLET 50 MG PO (20:54)
[2021-05-20] VITALS (29 sets, daily range): BP systolic 118–132; BP diastolic 70–89; PULSE 69–87; RESP 20–37; TEMP 36.6–36.9; O2SAT 77–99
[2021-05-20] MEDS: VANCOMYCIN 1,250 MG/250 ML PIGGYBACK 250 MG IV ×3 (03:29→21:42)
--- NOTE | 2021-05-20 07:47 | PM.PN.1 ---
Subjective Subjective Date Patient Seen: 05/20/21 Time Patient Seen: 07:47 Interval history: Patient seen and evaluated this morning. Says she does not feel well. Patient was up ambulating to the bathroom. Oxygen saturations drop into the 80s. With minimal exertion. Patient states not eating and drinking well. Mouth is dry. Continues with nonproductive cough. Discussed care with nursing staff. Vital signs have been reviewed. Laboratory tests have not been drawn this morning is patient was uncomfortable and did not want to have blood test done. Exam Vital Signs (past 8 hours): - 05/20/21 00:25 05/20/21 04:00 Temperature 98.3 F 98.2 F Pulse Rate 70 82 Respiratory Rate 20 28 H Blood Pressure 129/85 131/89 Pulse Oximetry 94 91 Oxygen Delivery Method High Flow Nasal Cannula Oxygen Flow Rate 5 Narrative Exam Narrative: Gen.: Alert patient feels crummy good historian. Short of breath and coughing HEENT: Pupils equal round and reactive or mucosa is dry Cardio: S1-S2 regular rate and rhythm Respiratory: Lungs sounds are distant mild increased work of breathing intermittent cough. Abdomen: Soft nontender Extremities: Warm dry perfused no calf tenderness Objective Labs Result Diagrams: 05/19/21 04:40 05/19/21 04:40 Labs: Laboratory Results - last 24 hr 05/19/21 05/19/21 12:15 16:37 Vancomycin Peak 19.8 L Vancomycin Trough 11.5 PFSH Medical History (Updated 05/14/21 @ 17:23 by Ammy Arboleda MD) Anxiety Asthma Hyperlipidemia Liver disease Migraines Obesity Personality disorder Surgical History Status post delivery Status post surgery (04/20/11) Family History Mother DM (diabetes mellitus screen) Hypertension Social History marital status: household members: spouse and children Smoking Status: Former smoker alcohol intake: current substance use type: does not use Assessment & Plan Assessment and plan (1) Pneumonia due to 2019-nCoV: Status: Acute Plan 1)? COVID pneumonia:? Hospitalization day 6. Worse night last night. Requiring increasing oxygen with Ventimask to keep sats stabilized with activity. - Dexamethasone daily, continue -remdesivir continue with current dose - RT for oxygen management - Mucinex, Percocet PRN for cough - Continue ativan as needed for anxiety -continue with prone positioning as this is working well 2)? Acute asthma exacerbation, stable - Dexamethasone as above -nebulizers per RT does seem to be working well as I think this is more COVID. 3)? Elevated liver enzymes, stable -blood work pending at this point. Monitor closely liver enzymes due to toxicity of multiple medications. 4)? Chronic osteomyelitis of thumb - Continue home Vancomycin via PICC, Augmentin orally peak trough levels have been reviewed 5)? Hyponatremia and hypochloremia, labs pending this morning. Normal saline provided yesterday. This is now been stopped. 6)? Hypertension ?- Continue home Metoprolol stop HCTZ 7)?nutrition -decreased p.o. intake. Some IV fluids yesterday encouraged oral hydration it resource drinks and food as tolerated. 8)? Depression/ Anxiety, not new and worsened by COVID.? Continue with home medications with addition of lorazepam. Code:? Full DVT ppx:? Lovenox Dispo:? Ongoing need for hospitalization Time Spent With Patient Critical Care time: I spent a total of [] minutes of critical care time on this patient's care today; this time is exclusive of procedural time. Quality VTE Deep Vein Thrombosis/Pulmonary Embolism Present on Admission: No
[2021-05-20] MEDS: SODIUM CHLORIDE 0.9% FLUSH 10 ML IV ×2 (08:00→22:00)
[2021-05-20] MEDS: METOPROLOL ER 25 MG TABLET PO (08:00)
[2021-05-20] MEDS: guaiFENesin ER 600 MG TAB 1200 MG PO ×2 (08:10→21:43)
[2021-05-20] MEDS: SPIRONOLACTONE 25 MG TABLET 75 MG PO (08:10)
[2021-05-20] MEDS: ENOXAPARIN 40 MG/0.4 ML SYRINGE SUBCUT (08:11)
[2021-05-20] MEDS: buPROPion SR 150 MG TAB PO (08:11)
[2021-05-20] MEDS: METFORMIN HCL 500 MG TABLET PO ×2 (08:11→21:43)
[2021-05-20] MEDS: AMOXICILLIN/CLAV 875/125 MG 1 TAB PO ×2 (08:11→21:43)
[2021-05-20] MEDS: FLUCONAZOLE 100 MG TABLET 400 MG PO (08:11)
[2021-05-20] MEDS: DEXAMETHASONE 10 MG/ML VIAL 6 MG IV (08:11)
[2021-05-20] MEDS: IPRATROPIUM 0.5 MG/2.5 ML NEB INH ×2 (08:57→20:00)
[2021-05-20] MEDS: BUDESONIDE 0.5 MG/2 ML NEB INH ×2 (08:57→20:00)
[2021-05-20] MEDS: REMDESIVIR 100 MG in SODIUM CHLORIDE 0.9% 230 ML 250 ML IV (11:02)
[2021-05-20 13:24] LABS: Add Manual Diff / Slide Review NO; Basophils Absolute Auto 0 /uL (0-100); Basophils Percent Auto 0.1 % (0-2); Eosinophils Absolute Auto 0 /uL (0-450); Eosinophils Percent Auto 0.1 % (2-4); Hematocrit 37.6 % (36-46); Hemoglobin 13.1 g/dL (12.0-16.0); Lymphocytes Absolute Auto 300 /uL (1100-4500); Lymphocytes Percent Auto 3.6 % (25-40); Mean Corpuscular HGB Conc 34.9 % (30-36); Mean Corpuscular Volume 91.7 fL (80-100); Monocytes Absolute Auto 600 /uL (0-900); Monocytes Percent Auto 6.6 % (3-14); Neutrophils Absolute Auto 8200 /uL (1500-7000); Neutrophils Percent Auto 89.6 % (50-75); Platelet Count 420 X10^3/uL (150-400); Red Cell Distribution Width 12.6 % (11.6-14.8); White Blood Cell Count 9.1 X10^3/uL (4.5-11.0)
[2021-05-20 14:24] LABS: Alanine Aminotransferase 88 IU/L (<35); Albumin 3.3 g/dL (3.5-5.0); Albumin Globulin Ratio 1.1 (1.0-2.8); Alkaline Phosphatase 90 U/L (38-126); Aspartate Aminotransferase 59 IU/L (14-36); Bilirubin Total 0.5 mg/dL (0.2-1.3); Blood Urea Nitrogen 13 mg/dL (7-17); Calcium 9.1 mg/dL (8.4-10.2); Carbon Dioxide 19 mmol/L (22-32); Chloride 105 mmol/L (98-107); Estimated Glomerular Filt Rate > 60.0 mL/min (>60); Globulin 2.9 g/dL (1.7-4.1); Glucose 150 mg/dL (70-100); HEMOLYSIS 20 (0-50); Potassium 4.9 mmol/L (3.4-5.1); Sodium 135 mmol/L (137-145); Total Protein 6.2 g/dL (6.3-8.2)
[2021-05-20] MEDS: ALBUTEROL 2.5 MG/3 ML NEB (ADULT) INH (20:00)
--- NOTE | 2021-05-20 20:02 | PC.NURSE ---
Day Shift Note 0730- Patient with complaint of shortness of breath this am at change of shift post ambulation to bathroom. Upon observation patient with saturations in high 70's on high flow nasal cannula. Bumped up to 15L with no change. Dr Grider at bedside for morning rounds, patient placed on non-rebreather 15L, increase in O2 saturations to 100% withing 15min. Able to titrate back down to 10L high flow NC with 93% O2 sat. 1300- Patient with complaint of shortness of breath post ambulation to bathroom, also expressing dizziness. Patient with O2 saturations in low 80's. Unable to recover with bump to 15L, placed on non-rebreather, recovered to 100% within 20min. Able to titrate down to 10L high flow NC with 94% O2 sat. 1800- Patient called this RN to bedside, complaint of shortness of breath, lips blue tinged, O2 sats dropping to high 70's. Patient placed immediately on non-rebreather 15L, after 20min patient able to recover slowly to 93%. Patient dangling at bedside to attempt use of bedside commode. Unable to tolerate activity O2 sats dropping, lips blue tinged, expressing increase shortness and dizziness. Patient expressing need to lie down. Patient assisted with change of position and able to recover semi-proned on left side. Dr Grider and RT at bedside with this RN discussing need to transfer patient to ICU for treatment with heated high flow nasal cannula, due to increased oxygen demand, work of breathing and intolerance of activity. Patient agreeable to transfer, expresses she is getting tired of breathing and needs a break. restaurant shift supervisor RAKE OPERATOR given report and this RN assisted with transfer of patient to ICU.
[2021-05-20] MEDS: TRAZODONE 50 MG TABLET 100 MG PO (21:43)
[2021-05-20] MEDS: SPIRONOLACTONE 25 MG TABLET 50 MG PO (21:43)
[2021-05-20] MEDS: LORazepam 2 MG/ML INJ 1 MG IV (21:59)
[2021-05-21] VITALS (61 sets, daily range): BP systolic 101–174; BP diastolic 58–109; PULSE 51–83; RESP 14–43; TEMP 36.2–37.4; O2SAT 88–98
[2021-05-21] MEDS: dexmedeTOMIDine in 0.9 % NaCL 400 MCG/100 ML PLAST..BAG 5.897 MCG IV (00:51)
[2021-05-21] MEDS: LORazepam 2 MG/ML INJ 1 MG IV ×2 (03:38→09:20)
[2021-05-21] MEDS: VANCOMYCIN 1,250 MG/250 ML PIGGYBACK 250 MG IV ×3 (03:38→22:08)
--- NOTE | 2021-05-21 04:20 | PC.NURSE ---
0420 - DISCUSSED PATIENT CONDITION WITH COSTUMER ASSISTANT. INFORMED HIM THAT ALTHOUGH THE PATIENT LOOKS COMFORTABLE AND HER OXYGENATION IS 99%, HER RESPIRATORY RATE IS CONSISTENTLY ABOVE 30. INFORMED HIM THAT I HAVE HER ON 0.4 MCG/KG/HR OF PRECEDEX AND I HAVE GIVEN HER ATIVAN TWICE AND HER RESPIRATORY RATE STAYS ABOVE 30. SHE IS INCREASINGLY ANXIOUS AND IS NOT RESPONDING TO THE MEDICATIONS THAT I HAVE GIVEN HER. MD STATED THAT SHE WILL LIKELY NEED INTUBATION IN THE NEXT 12 HOURS IF HER STATUS DOES NOT IMPROVE.
--- NOTE | 2021-05-21 04:51 | DI.RAD.S_ITS ---
PROCEDURE: XR CHEST 1V INDICATIONS: covid, pneumonia TECHNIQUE: One view of the chest was acquired. COMPARISON: [facility], CR, XR CHEST 2V, 05/17/2021, 16:32. FINDINGS: Surgical changes and devices: None. Lungs and pleura: Reduced lung volumes. Bilateral airspace opacities, grossly unchanged. No pleural effusion or pneumothorax. Mediastinum: Mediastinal contours appear normal. Heart size is normal. Bones and chest wall: No suspicious bony lesions. Overlying soft tissues appear unremarkable. Redemonstrated elevation of the right diaphragm. IMPRESSION: No significant interval change. Dictated by: Louie Barnes M.D. on 05/21/2021 at 9:25 Approved by: Louie Banres M.D. on 05/21/2021 at 9:26
--- NOTE | 2021-05-21 04:56 | PM.CN.EICU ---
History of Present Illness Consult details Chief complaint: COVID+ o2 levels are low. referred by Marni :: This patient was seen via real time interactive two-way audiovisual telecommunication. 46 yo woman with H/o of PCOS, HTN, asthma, depression, and chronic osteomyelitis , patient wasn?t vaccinated for COVID, admitted for sever COVID PNA, today is Day 7 of her hospitalization, she was transferred to ICU for worsening hypoxemia requiring HFNC. ? Assessment: Sever COVID PNA Sever ARDS Acute hypoxic resp failure Acute asthma exacerbation Acute hepatitis 2/2 meds Anxiety Acute metabolic encephalopathy Chronic osteomyelitis of thumb Hyponatremia / resolved ? Plan: - HFNC 50 & 70%, adjust as needed for sat goal of 92% - CXR daily - Increase Dexamethasone to 6mg bid - Continue Remdesivir , LFT trending down - On home regimen of ?IV Vancomycin, via PICC, Augmentin & fluconazole orally - Consult ID for antibiotics mgt - DC metformin and start ISS, may need Long acting as a maintenance - On Lovenox for DVT ppx, increase to intermediate dose -? Encourage PO intake tolerated/ Ensure/ Nut consult - Very critically ill, very likely will need mechanical ventilation in the next 24 hrs ? CCT 60 min PFSH Medical History (Updated 05/14/21 @ 17:23 by Ammy Arboleda MD) Anxiety Asthma Hyperlipidemia Liver disease Migraines Obesity Personality disorder Surgical History Status post delivery Status post surgery (04/20/11) Family History Mother DM (diabetes mellitus screen) Hypertension Social History marital status: household members: spouse and children Smoking Status: Former smoker alcohol intake: current substance use type: does not use Current Medications Current Medications Medications: Home Medications albuterol sulfate 90 mcg/actuation aerosol inhaler 2 puff INHALATION Q4-6H PRN #8.5 gram 05/27/19 [Rx Confirmed 05/14/21] inhalational spacing device (Flexichamber) #1 each 05/27/19 [Rx Confirmed 05/16/21] dextroamphetamine 10 mg capsule,extended release (Dexedrine Spansule) 20 mg PO QDAY #180 cap 02/19/20 [Rx Confirmed 05/14/21] spironolactone 50 mg tablet See Rx Instructions .ROUTE .COMPLEX #180 tablet 04/16/20 [Rx Confirmed 05/14/21] metformin 500 mg tablet See Rx Instructions .ROUTE .COMPLEX #180 tablet 07/01/20 [Rx Confirmed 05/14/21] fluticasone 250 mcg-salmeterol 50 mcg/dose blistr powdr for inhalation (Advair Diskus) 1 inh INHALATION BID #60 each 12/30/20 [Rx Confirmed 05/14/21] bupropion HCl 150 mg tablet,12 hr sustained-release See Rx Instructions .ROUTE .COMPLEX #30 tablet 02/27/21 [Rx Confirmed 05/14/21] metoprolol succinate 25 mg tablet,extended release 24 hr See Rx Instructions .ROUTE .COMPLEX #30 tablet 02/27/21 [Rx Confirmed 05/14/21] trazodone 100 mg tablet 100 mg PO BEDTIME #30 tab 02/27/21 [Rx Confirmed 05/14/21] spironolactone 25 mg-hydrochlorothiazide 25 mg tablet See Rx Instructions .ROUTE .COMPLEX #90 tab 05/06/21 [Rx Confirmed 05/14/21] phentermine 37.5 mg capsule 37.5 mg PO DAILY #60 cap 05/07/21 [Rx Confirmed 05/14/21] amoxicillin 875 mg-potassium clavulanate 125 mg tablet 1 tab PO BID 05/14/21 [History Confirmed 05/14/21] fluconazole 200 mg tablet 400 mg PO DAILY 05/14/21 [History Confirmed 05/14/21] Visit Medications (administered) Generic Name Dose Route Start Last Admin Trade Name Freq PRN Reason Stop Dose Admin Hydrocodone Bitart/Acetaminophen 1 tab 05/14/21 19:24 05/18/21 13:16 Hydrocodone/Acet 5/325 Tablet PO 1 tab Q4HR PRN Administration Pain, Moderate (4-6) Albuterol 2.5 mg 05/14/21 19:39 05/20/21 20:00 Albuterol 2.5 Mg/3 Ml Neb (Adult) INH 2.5 mg [id number] PRN Administration Shortness Of Breath Amoxicillin/Clavulanate Potassium 1 tab 05/14/21 21:00 05/20/21 21:43 Amoxicillin/Clav 875/125 Mg PO 1 tab BID RACHEL Administration Budesonide 0.5 mg 05/14/21 20:00 05/20/21 20:00 Budesonide 0.5 Mg/2 Ml Neb INH 0.5 mg RTBID RACHEL Administration Bupropion HCl 150 mg 05/15/21 09:00 05/20/21 08:11 Bupropion Sr 150 Mg Tab PO 150 mg DAILY RACHEL Administration Fluconazole 400 mg 05/15/21 09:00 05/20/21 08:11 Fluconazole 100 Mg Tablet PO 400 mg DAILY RACHEL Administration Guaifenesin 1,200 mg 05/14/21 21:00 05/20/21 21:43 Guaifenesin Er 600 Mg Tab PO 1,200 mg BID RACHEL Administration Guaifenesin/Codeine Phosphate 5 ml 05/15/21 19:19 05/18/21 13:15 Codeine/Guaifenesin Liquid 5ml Udc PO 5 ml Q6H PRN Administration Cough Heparin Sodium (Porcine) 50 unit 05/17/21 11:54 05/20/21 21:44 Heparin Flush (Cl/Picc/Mid-Line) 50 Unit/5 Ml Syringe IV 50 unit PRN PRN Administration Flush Heparin Sodium (Porcine) 50 unit 05/17/21 21:00 05/20/21 21:43 Heparin Flush (Cl/Picc/Mid-Line) 50 Unit/5 Ml Syringe IV 50 unit BID RACHEL Administration Hydroxyzine Pamoate 50 mg 05/16/21 09:19 05/18/21 13:16 Hydroxyzine Pamoate 25 Mg Capsule PO 50 mg Q4HR PRN Administration Nausea, Anxiety Vancomycin HCl 1,250 mg in 250 mls @ 250 mls/hr 05/15/21 20:00 05/21/21 03:38 Vancomycin IV 250 mls/hr Q8H RACHEL Administration Sodium Chloride 500 mls @ 100 mls/hr 05/18/21 09:00 05/18/21 18:31 Normal Saline 0.9% IV Infused CONT RACHEL Infusion Remdesivir 100 mg/ Sodium 250 mls @ 250 mls/hr 05/19/21 09:00 05/20/21 11:05 Chloride IV 05/22/21 09:59 Infused DAILY RACHEL Infusion dexmedeTOMIDine in 0.9 % NaCL 400 mcg in 100 mls @ 5.897 mls/hr 05/21/21 00:30 05/21/21 01:59 Precedex IV 0.4 mcg/kg/hr TITRATE RACHEL 11.793 mls/hr Titration Protocol 0.2 MCG/KG/HR Ibuprofen 600 mg 05/14/21 19:24 05/17/21 10:31 Ibuprofen 600 Mg Tablet PO 600 mg Q6HR PRN Administration Fever/Mild Pain (1-3) Ipratropium [place] 0.5 mg 05/16/21 07:00 05/20/21 23:00 Ipratropium 0.5 Mg/2.5 Ml Neb INH Not Given [id number] RACHEL Lorazepam 1 mg 05/20/21 07:54 05/21/21 03:38 Lorazepam 2 Mg/Ml Inj IV 1 mg Q4HR PRN Administration Anxiety Metformin HCl 500 mg 05/15/21 21:00 05/20/21 21:43 Metformin Hcl 500 Mg Tablet PO 05/21/21 23:59 500 mg BID RACHEL Administration Metoprolol Succinate 25 mg 05/15/21 09:00 05/20/21 08:00 Metoprolol Er 25 Mg Tablet PO 25 mg DAILY RACHEL Administration Ondansetron HCl 4 mg 05/14/21 19:24 05/15/21 08:22 Ondansetron 4 Mg Odt PO 4 mg Q8HR PRN Administration Nausea And Vomiting Sodium Chloride 10 ml 05/16/21 19:29 05/17/21 12:01 Sodium Chloride 0.9% Flush IV 10 ml PRN PRN Administration Flush Sodium Chloride 10 ml 05/17/21 09:00 05/20/21 22:00 Sodium Chloride 0.9% Flush IV 10 ml BID RACHEL Administration Spironolactone 75 mg 05/15/21 09:00 05/20/21 08:10 Spironolactone 25 Mg Tablet PO 75 mg DAILY RACHEL Administration Spironolactone 50 mg 05/14/21 21:00 05/20/21 21:43 Spironolactone 25 Mg Tablet PO 50 mg BEDTIME RACHEL Administration Trazodone HCl 100 mg 05/14/21 21:00 05/20/21 21:43 Trazodone 50 Mg Tablet PO 100 mg BEDTIME RACHEL Administration Exam Vital Signs (past 8 hours): - 05/20/21 20:58 05/20/21 21:00 05/20/21 21:30 Temperature 98.5 F Pulse Rate 81 76 Respiratory Rate 33 H 29 H Blood Pressure Pulse Oximetry 98 99 05/20/21 21:48 05/20/21 22:00 05/20/21 22:15 Temperature Pulse Rate 79 79 80 Respiratory Rate 31 H 37 H 32 H Blood Pressure 132/75 126/71 118/70 Pulse Oximetry 96 95 05/20/21 22:30 05/20/21 23:00 05/20/21 23:13 Temperature Pulse Rate 78 69 83 Respiratory Rate 32 H 32 H 31 H Blood Pressure 118/70 Pulse Oximetry 95 97 93 05/20/21 23:30 05/21/21 00:00 05/21/21 00:30 Temperature Pulse Rate 80 73 83 Respiratory Rate 35 H 29 H 32 H Blood Pressure Pulse Oximetry 91 96 93 05/21/21 01:00 05/21/21 01:20 05/21/21 01:30 Temperature Pulse Rate 68 70 69 Respiratory Rate 32 H 31 H 31 H Blood Pressure Pulse Oximetry 97 94 97 05/21/21 02:00 05/21/21 02:30 05/21/21 02:35 Temperature Pulse Rate 66 77 63 Respiratory Rate 33 H 22 31 H Blood Pressure 115/58 L Pulse Oximetry 97 98 92 05/21/21 03:00 05/21/21 03:23 05/21/21 03:30 Temperature Pulse Rate 61 63 60 Respiratory Rate 29 H 28 H 27 H Blood Pressure 132/63 Pulse Oximetry 96 93 96 05/21/21 04:00 05/21/21 04:16 Temperature 99.2 F Pulse Rate 63 61 Respiratory Rate 20 35 H Blood Pressure 132/63 Pulse Oximetry 93 Fraction of Inspired Oxygen 0.67 Oxygen Delivery Method Heated High Flow Oxygen Flow Rate 50 Objective Labs Result Diagrams: 05/20/21 13:15 05/20/21 13:15 Labs: Laboratory Results - last 24 hr 05/20/21 05/20/21 13:15 13:15 WBC 9.1 RBC 4.10 Hgb 13.1 Hct 37.6 MCV 91.7 MCH 32.0 MCHC 34.9 RDW 12.6 Plt Count 420 H Neut % (Auto) 89.6 H Lymph % (Auto) 3.6 L [place] % (Auto) 6.6 Eos % (Auto) 0.1 L Baso % (Auto) 0.1 Neut # (Auto) 8200 H Lymph # (Auto) 300 L [place] # (Auto) 600 Eos # (Auto) 0 Baso # (Auto) 0 Sodium 135 L Potassium 4.9 Chloride 105 Carbon Dioxide 19 L BUN 13 Creatinine 0.59 Estimated GFR > 60.0 BUN/Creatinine Ratio 22.0 Glucose 150 H Calcium 9.1 Total Bilirubin 0.5 AST 59 H ALT 88 H Alkaline Phosphatase 90 Total Protein 6.2 L Albumin 3.3 L Globulin 2.9 Albumin/Globulin Ratio 1.1 Assessment & Plan Time Spent With Patient Critical Care time: I spent a total of [] minutes of critical care time on this patient's care today; this time is exclusive of procedural time.
[2021-05-21] MEDS: ENOXAPARIN 40 MG/0.4 ML SYRINGE SUBCUT ×2 (05:46→18:23)
[2021-05-21 06:11] LABS: Add Manual Diff / Slide Review NO; Basophils Absolute Auto 0 /uL (0-100); Basophils Percent Auto 0.1 % (0-2); Eosinophils Absolute Auto 100 /uL (0-450); Eosinophils Percent Auto 0.6 % (2-4); Hematocrit 38.6 % (36-46); Hemoglobin 13.5 g/dL (12.0-16.0); Lymphocytes Absolute Auto 800 /uL (1100-4500); Mean Corpuscular HGB Conc 34.9 % (30-36); Mean Corpuscular Volume 91.7 fL (80-100); Monocytes Absolute Auto 800 /uL (0-900); Monocytes Percent Auto 8.8 % (3-14); Neutrophils Absolute Auto 7400 /uL (1500-7000); Neutrophils Percent Auto 81.5 % (50-75); Platelet Count 403 X10^3/uL (150-400); Red Blood Cell Count 4.21 X10^6/uL (4.0-5.2); Red Cell Distribution Width 12.6 % (11.6-14.8); White Blood Cell Count 9.1 X10^3/uL (4.5-11.0)
[2021-05-21 06:28] LABS: Alanine Aminotransferase 103 IU/L (<35); Albumin 3.6 g/dL (3.5-5.0); Albumin Globulin Ratio 1.1 (1.0-2.8); Alkaline Phosphatase 90 U/L (38-126); Aspartate Aminotransferase 59 IU/L (14-36); BUN Creatinine Ratio 22.6 (6-22); Bilirubin Total 0.6 mg/dL (0.2-1.3); Blood Urea Nitrogen 14 mg/dL (7-17); C-Reactive Protein Quant 6.9 mg/dL (<1.0); Calcium 9.3 mg/dL (8.4-10.2); Carbon Dioxide 21 mmol/L (22-32); Chloride 107 mmol/L (98-107); Estimated Glomerular Filt Rate > 60.0 mL/min (>60); Globulin 3.3 g/dL (1.7-4.1); Glucose 107 mg/dL (70-100); HEMOLYSIS 16 (0-50); Potassium 4.2 mmol/L (3.4-5.1); Sodium 138 mmol/L (137-145); Total Protein 6.9 g/dL (6.3-8.2)
--- NOTE | 2021-05-21 06:52 | P.PN_ITS ---
Subjective Subjective Date Patient Seen: 05/21/21 Time Patient Seen: 09:04 Interval history: Patient seen and evaluated discussed the care with nursing staff tele in tensivist. Laboratory tests were reviewed. Patient transferred to the ICU. Requiring heated high-flow oxygen. 50 L at 70% FiO2. ABG looks good. Patient had a little bit sleepy yesterday. Still working on prone in with patient. Patient on Precedex which is helping with anxiety. Comfortably tolerating the heated high-flow. Discussed with patient high risk for mechanical ventilation. Patient does not desire intubation but will in an emergency situation. Discussed situation of protein with patient recommended prone at least 8 hours a day. Exam Vital Signs (past 8 hours): - 05/20/21 23:00 05/20/21 23:13 05/20/21 23:30 Temperature Pulse Rate 69 83 80 Respiratory Rate 32 H 31 H 35 H Blood Pressure 118/70 Pulse Oximetry 97 93 91 05/21/21 00:00 05/21/21 00:30 05/21/21 01:00 Temperature Pulse Rate 73 83 68 Respiratory Rate 29 H 32 H 32 H Blood Pressure Pulse Oximetry 96 93 97 05/21/21 01:20 05/21/21 01:30 05/21/21 02:00 Temperature Pulse Rate 70 69 66 Respiratory Rate 31 H 31 H 33 H Blood Pressure Pulse Oximetry 94 97 97 05/21/21 02:30 05/21/21 02:35 05/21/21 03:00 Temperature Pulse Rate 77 63 61 Respiratory Rate 22 31 H 29 H Blood Pressure 115/58 L Pulse Oximetry 98 92 96 05/21/21 03:23 05/21/21 03:30 05/21/21 04:00 Temperature 99.2 F Pulse Rate 63 60 63 Respiratory Rate 28 H 27 H 20 Blood Pressure 132/63 132/63 Pulse Oximetry 93 96 93 05/21/21 04:16 Temperature Pulse Rate 61 Respiratory Rate 35 H Blood Pressure Pulse Oximetry Fraction of Inspired Oxygen 0.67 Oxygen Delivery Method Heated High Flow Oxygen Flow Rate 50 Narrative Exam Narrative: Gen.: Patient alert somewhat anxious. Oriented to person time and place. HEENT: Pupils equal round and reactive. Oral mucosa is moist. Cardio: S1-S2 regular rate rhythm Respiratory: Lungs are clear to auscultation increased work of breathing. Abdomen: Soft nontender Extremities: Full range of motion Objective Labs Result Diagrams: 05/21/21 05:15 05/21/21 05:15 Labs: Laboratory Results - last 24 hr 05/20/21 05/20/21 05/21/21 13:15 13:15 05:15 WBC 9.1 9.1 RBC 4.10 4.21 Hgb 13.1 13.5 Hct 37.6 38.6 MCV 91.7 91.7 MCH 32.0 32.0 MCHC 34.9 34.9 RDW 12.6 12.6 Plt Count 420 H 403 H Neut % (Auto) 89.6 H 81.5 H Lymph % (Auto) 3.6 L 9.0 L [place] % (Auto) 6.6 8.8 Eos % (Auto) 0.1 L 0.6 L Baso % (Auto) 0.1 0.1 Neut # (Auto) 8200 H 7400 H Lymph # (Auto) 300 L 800 L [place] # (Auto) 600 800 Eos # (Auto) 0 100 Baso # (Auto) 0 0 Sodium 135 L Potassium 4.9 Chloride 105 Carbon Dioxide 19 L BUN 13 Creatinine 0.59 Estimated GFR > 60.0 BUN/Creatinine Ratio 22.0 Glucose 150 H Calcium 9.1 Total Bilirubin 0.5 AST 59 H ALT 88 H Alkaline Phosphatase 90 Total Protein 6.2 L Albumin 3.3 L Globulin 2.9 Albumin/Globulin Ratio 1.1 [facility] Medical History (Updated 05/21/21 @ 09:11 by Bruno Grider MD) Anxiety Asthma Hyperlipidemia Liver disease Migraines Obesity Personality disorder Surgical History Status post delivery Status post surgery (04/20/11) Family History Mother DM (diabetes mellitus screen) Hypertension Social History marital status: household members: spouse and children Smoking Status: Former smoker alcohol intake: current substance use type: does not use Assessment & Plan Assessment and plan (1) Pneumonia due to 2019-nCoV: Status: Acute (2) Acute asthma exacerbation: Status: Acute (3) Respiratory failure with hypoxia: Status: Acute (4) ARDS (adult respiratory distress syndrome): Status: Acute Plan 1)? COVID pneumonia:? Hospitalization day 7? Worse night last night.? Transferred back to the ICU. On heated high-flow 50 L and 70% FiO2. 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 -remdesivir continue with current dose -start bairicitinab - RT for oxygen management -Precedex for mild sedation and anxiety - Continue ativan as needed for anxiety -continue with prone positioning as this is working wel -concern decline in status after 7 days. Patient on DVT prophylaxis. CT todd ogram to rule out underlying pulmonary emboli 2)? Acute asthma exacerbation, - Dexamethasone increase dose to b.i.d. -nebulizers per RT does seem to be working well as I think this is more COVID related 3)? Elevated liver enzymes, stable -blood work shows improvement of liver enzymes over time. 4)? Chronic osteomyelitis of thumb - Continue home Vancomycin via PICC, Augmentin orally peak trough levels have been reviewed 5)? Hyponatremia and hypochloremia, -electrolytes are improved 6)? Hypertension ?- Continue home Metoprolol stop HCTZ 7)?nutrition -decreased p.o. intake.? Some IV fluids yesterday encouraged oral hydration it resource drinks and food as tolerated. Code status full code Disposition and plan. Placement Manuel catheters CT scan of chest to rule out PE. PICC line with 2 port placement. Adjust Lovenox to b.i.d. high risk for intubation. Due to the COVID pandemic and crisis some staffing at tertiary [facility] hospitalization. Patient is in acute for transfer to tertiary [facility] and will continue to work with transfer team. Time Spent With Patient Critical Care time: I spent a total of [] minutes of critical care time on this patient's care today; this time is exclusive of procedural time. Quality VTE Deep Vein Thrombosis/Pulmonary Embolism Present on Admission: No
[2021-05-21 07:03] LABS: Procalcitonin 0.11 ng/mL (<0.5)
[2021-05-21] MEDS: dexmedeTOMIDine in 0.9 % NaCL 400 MCG/100 ML PLAST..BAG 14.742 MCG IV (08:07)
[2021-05-21] MEDS: IPRATROPIUM 0.5 MG/2.5 ML NEB INH ×3 (08:44→21:31)
[2021-05-21] MEDS: BUDESONIDE 0.5 MG/2 ML NEB INH ×2 (08:44→21:31)
--- NOTE | 2021-05-21 08:52 | DI.CT.S_ITS ---
PROCEDURE: CT ANGIO CHEST PE PROTOCOL INDICATIONS: covid pneumionia r/o pe TECHNIQUE: After the administration of intravenous contrast, 2 mm thick sections acquired from the pulmonary apices to the posterior costophrenic angles. 3-dimensional maximum intensity projection (MIP) coronal and sagittal reformats were then acquired through the thorax. For radiation dose reduction, the following was used: automated exposure control, adjustment of mA and/or kV according to patient size. COMPARISON: None. FINDINGS: Image quality: Excellent. Pulmonary arteries: Pulmonary arteries are normal in size, and demonstrate no intraluminal filling defects to suggest central pulmonary embolism. Lungs and pleura: Diffuse bilateral patchy airspace opacities are seen consistent with patient history of COVID-19. No pleural effusions or pneumothorax. Central and peripheral airways are patent. Mediastinum: Heart size is normal, without pericardial effusion. No mediastinal or hilar adenopathy. Thoracic aorta is normal in caliber and enhancement. Esophagus is normal in caliber, without hiatal hernia. Bones and chest wall: No suspicious bony lesions. Ribs and thoracic spine appear intact throughout. Thyroid gland is normal. No axillary or supraclavicular adenopathy. Abdomen: Visualized upper abdominal solid organs appear normal in the early arterial phase of enhancement. IMPRESSION: 1. No pulmonary embolism. 2. Pulmonary findings consistent with history of COVID-19. Dictated by: Jordy Olmstead M.D. on 05/21/2021 at 10:09 Approved by: Jordy Olmstead M.D. on 05/21/2021 at 10:13
[2021-05-21] MEDS: METOPROLOL ER 25 MG TABLET PO ×2 (10:20→18:21)
[2021-05-21] MEDS: CODEINE/GUAIFENESIN LIQUID 5ML UDC 5 ML PO (10:20)
[2021-05-21] MEDS: HYDROCODONE/ACET 5/325 TABLET 1 TAB PO (10:21)
[2021-05-21] MEDS: FLUCONAZOLE 100 MG TABLET 400 MG PO (10:21)
[2021-05-21] MEDS: guaiFENesin ER 600 MG TAB 1200 MG PO ×2 (10:22→22:09)
[2021-05-21] MEDS: FAMOTIDINE 20 MG/2 ML VIAL IV ×2 (10:23→22:12)
[2021-05-21] MEDS: AMOXICILLIN/CLAV 875/125 MG 1 TAB PO ×2 (10:23→22:09)
[2021-05-21] MEDS: BARICITINIB 2 MG TABLET 4 MG PO (10:23)
[2021-05-21] MEDS: SPIRONOLACTONE 25 MG TABLET 75 MG PO (10:24)
[2021-05-21] MEDS: SODIUM CHLORIDE 0.9% FLUSH 10 ML IV ×2 (10:28→22:10)
[2021-05-21] MEDS: REMDESIVIR 100 MG in SODIUM CHLORIDE 0.9% 230 ML 250 ML IV (10:28)
[2021-05-21] MEDS: buPROPion SR 150 MG TAB PO (10:29)
--- NOTE | 2021-05-21 11:19 | DIET.PN1 ---
Dietary Progress Note Assessment: 46y F admitted c covid PNA unvaccinated transferred to ICU last evening secondary to worsening respiratory status. Pts POs have been poor this hospitalization x5d despite initiation of ONS Ensure Max. Discussed with ICU nurse who mentioned pt is eating her fruit at meals. Pt with severe acute protein calorie malnutrition, pts obesity increases risk of deconditioning with malnutrition. Ht: 175.26 cm Wt: 117.934 kg BMI: 38.4 Last BM: 05/20/21 (05/20/21 14:00) MNA: 11 Ronn Score: 19 Diet: 05/14/21 Dinner General (Regular) Diet Diet Modifications: Ensure Max c lunch Nutrition Percent Meal Consumed a few pieces of fruit 05/20/21 10:00 Percent Meal Consumed 0% 05/20/21 00:25 Percent Meal Consumed 0% 05/19/21 18:00 Labs: RBC 4.21 X10^6/uL (4.0-5.2) 05/21/21 05:15 Hgb 13.5 g/dL (12.0-16.0) 05/21/21 05:15 Hct 38.6 % (36-46) 05/21/21 05:15 Creatinine 0.62 mg/dL (0.52-1.04) 05/21/21 05:15 Lactate 1.0 mmol/L (0.7-2.1) 05/14/21 16:12 NT-Pro-B Natriuret Pep 49 pg/mL (<125) 05/14/21 16:12 Nutrition Diagnosis: Severe Acute Protein Calorie Malnutrition r/t poor appetite, increased work of breathing aeb pt hospitalized with severe covid PNA, POs this hospitalization <50% EER x5d despite ONS initiation, pt respiratory status worsened overnight moved to ICU for higher level care. Interventions: 1. Continue Ensure Max c lunches, regular Ensure between meals. 2. Nursing to continue encouraging small frequent sips to support nutrition status. 3. Kitchen to provide ONS Kieran slushie to test for acceptance at lunch today. Pt accepting fruit, providing fruit plate with yogurt to test for ability to increase POs. EER: 2300kcals (20kcal/kg per PCM obese), 120g PRO (1g/kg) Monitoring/Evaluations: following daily Electronically Signed by: Aimee Shaw 05/21/21 11:[address] [id number]
--- NOTE | 2021-05-21 12:33 | DI.RAD.S_ITS ---
PROCEDURE: XR CHEST FOR PICC 1V INDICATIONS: picc line placement COMPARISON: [facility], , XR CHEST 1V, 05/21/2021, 5:43. FINDINGS: PICC was placed by the intravenous therapy team from the right side. Fluoroscopic spot film demonstrates the tip of PICC projecting to the area of distal SVC. Bilateral pulmonary infiltrates accentuated by low lung volumes IMPRESSION: Tip of PICC projects to the area of distal SVC. Approved by: Ryan Crystal M.D. on 05/21/2021 at 12:49
[2021-05-21 12:38] LABS: Fractionated Inspired Oxygen 70; HCO3 ABG 22 mmol/L (22-26); Oxygen Saturation ABG 93 % (95-100); PCO2 ABG 33.3 mmHg (35-45); PO2 ABG 65 mmHg (80-100); TCO2 ABG 23 mmol/L (21-31); pH ABG 7.42 (7.35-7.45)
[2021-05-21] MEDS: DEXAMETHASONE 10 MG/ML VIAL 6 MG IV (13:43)
--- NOTE | 2021-05-21 13:59 | CM.DPC ---
DCP Cont: Per MD, pt continues to need high levels of HHFNC and in ICU and high risk for need of intubation possibly today but getting scans to confirm no PE and scan looks normal. Per it operations specialist, some initial concerns as pt's spouse is admitted in room next to pt and intubated with COVID+ complications and may need hospital transfer if available and pt has 12 yo son at home with some type of disability and spouse has 21 yr old son who is concerned for pt and spouse. it operations specialist also spoke to pt's father and mother who confirm that 12 yo son is safely being cared for by friends and family and no concerns for him at this time and it operations specialist updated them on pt's status and possible intubation and transfer pending her progress and they are very appreciative and supportive and it operations specialist to put contact names and numbers in a note in pt's chart. Plan: SW to follow closely for possible intubation and then attempt at hospital transfer and if pt begins to make improvements then determining safe d/c plan since spouse is also hospitalized. BENIGNO Ramesh
[2021-05-21 14:19] LABS: INR 1.4 (0.9-1.3); Prothrombin Time 15.5 SECONDS (10.1-12.7)
--- NOTE | 2021-05-21 17:08 | PM.PN.1 ---
Subjective Subjective Date Patient Seen: 05/21/21 Time Patient Seen: 17:08 Exam Vital Signs (past 8 hours): - 05/21/21 09:50 05/21/21 10:21 05/21/21 12:20 Temperature 99.3 F Pulse Rate 76 78 Respiratory Rate 19 Blood Pressure 101/62 101/62 Pulse Oximetry 97 05/21/21 15:00 05/21/21 15:57 Temperature 98.7 F Pulse Rate 68 67 Respiratory Rate 35 H 24 Blood Pressure 149/91 H Pulse Oximetry 96 93 Fraction of Inspired Oxygen 65 Oxygen Delivery Method High Flow Nasal Cannula Oxygen Flow Rate 50 Objective Labs Result Diagrams: 05/21/21 05:15 05/21/21 05:15 Labs: Laboratory Results - last 24 hr 05/21/21 05/21/21 05/21/21 05:15 05:15 05:15 WBC 9.1 RBC 4.21 Hgb 13.5 Hct 38.6 MCV 91.7 MCH 32.0 MCHC 34.9 RDW 12.6 Plt Count 403 H Neut % (Auto) 81.5 H Lymph % (Auto) 9.0 L [place] % (Auto) 8.8 Eos % (Auto) 0.6 L Baso % (Auto) 0.1 Neut # (Auto) 7400 H Lymph # (Auto) 800 L [place] # (Auto) 800 Eos # (Auto) 100 Baso # (Auto) 0 PT INR ABG pH ABG pCO2 ABG pO2 ABG HCO3 ABG Total CO2 ABG O2 Saturation ABG Base Excess FiO2 Sodium 138 Potassium 4.2 Chloride 107 Carbon Dioxide 21 L BUN 14 Creatinine 0.62 Estimated GFR > 60.0 BUN/Creatinine Ratio 22.6 H Glucose 107 H Calcium 9.3 Magnesium 2.0 Total Bilirubin 0.6 AST 59 H ALT 103 H Alkaline Phosphatase 90 C-Reactive Protein 6.9 H Total Protein 6.9 Albumin 3.6 Globulin 3.3 Albumin/Globulin Ratio 1.1 Procalcitonin 0.11 05/21/21 05/21/21 08:44 14:00 WBC RBC Hgb Hct MCV MCH MCHC RDW Plt Count Neut % (Auto) Lymph % (Auto) [place] % (Auto) Eos % (Auto) Baso % (Auto) Neut # (Auto) Lymph # (Auto) [place] # (Auto) Eos # (Auto) Baso # (Auto) PT 15.5 H INR 1.4 H ABG pH 7.42 ABG pCO2 33.3 L ABG pO2 65 L ABG HCO3 22 ABG Total CO2 23 ABG O2 Saturation 93 L ABG Base Excess -3.0 L FiO2 70 Sodium Potassium Chloride Carbon Dioxide BUN Creatinine Estimated GFR BUN/Creatinine Ratio Glucose Calcium Magnesium Total Bilirubin AST ALT Alkaline Phosphatase C-Reactive Protein Total Protein Albumin Globulin Albumin/Globulin Ratio Procalcitonin [facility] Medical History (Updated 05/21/21 @ 09:11 by Bruno Grider MD) Anxiety Asthma Hyperlipidemia Liver disease Migraines Obesity Personality disorder Surgical History Status post delivery Status post surgery (04/20/11) Family History Mother DM (diabetes mellitus screen) Hypertension Social History marital status: household members: spouse and children Smoking Status: Former smoker alcohol intake: current substance use type: does not use Assessment & Plan Time Spent With Patient Critical Care time: I spent a total of [] minutes of critical care time on this patient's care today; this time is exclusive of procedural time. Quality VTE Deep Vein Thrombosis/Pulmonary Embolism Present on Admission: No
[2021-05-21] MEDS: dexmedeTOMIDine in 0.9 % NaCL 400 MCG/100 ML PLAST..BAG 20.638 MCG IV (18:21)
--- NOTE | 2021-05-21 21:36 | PM.ICURNDS ---
- Date Patient Seen: 05/21/21 Time Patient Seen: 21:36 :: This patient was seen via real time interactive two-way audiovisual telecommunication. Note: stable on high flow, no distress or increased work of breathing, pending transfer
[2021-05-21] MEDS: TRAZODONE 50 MG TABLET 100 MG PO (22:09)
[2021-05-21] MEDS: dexmedeTOMIDine in 0.9 % NaCL 400 MCG/100 ML PLAST..BAG 17.69 MCG IV (22:12)
[2021-05-21] MEDS: lisinopriL 20 MG TABLET PO (22:40)
--- NOTE | 2021-05-21 23:19 | PC.NURSE ---
[id number] - TRANSPORT TEAM RN AT BEDSIDE AND REPORT GIVEN. PATIENT TRANSPORTED ON BIPAP AND TOLERATING WELL. PRECEDEX AT TIME OF TRANSPORT WAS SET TO 0.4 MCG/KG/HR. ATIVAN GIVEN BECAUSE PATIENT STARTED TO BECOME ANXIOUS ABOUT THE BIPAP. PATIENT TOLERATED WELL. VSS AT TIME OF TRANSPORT. ALL BELONGINGS GIVEN TO TRANSPORT TEAM. REPORT CALLED TO SEAMUS AT [facility].
--- NOTE | 2021-05-22 09:31 | CM.DPC ---
DCP Hospital Transfer Per MD, pt was accepted at [facility] for higher level of care due to her COVID+ symptoms and oxygen needs and likely intubation and was transported with bipap. Per RN, family notified and pt's spouse was also transferred to [facility] for higher level of vent needs due to COVID+, both after SW shift ended. BENIGNO Ramesh
--- NOTE | 2021-05-22 16:21 | PM.DS.1 ---
History of Present Illness History of Present Illness Chief complaint: COVID+ o2 levels are low. referred by Marni Discharge Providers Provider Date of admission: 05/14/21 17:17 Discharge Date: 05/21/21 Primary care physician: Bruno Grider MD Discharge provider: Bruno Grider MD Summary Hospital Course Discharge Diagnosis: COVID 19 pneumonia Acute respiratory failure Acute respiratory distress syndrome Acute asthma exacerbation Acute liver enzyme elevation Chronic osteomyelitis of the thumb Acute hyponatremia Severe protein calorie malnutrition Essential hypertension Hospital Course: 46-year-old female admitted to the hospital with a severe COVID pneumonia and acute respiratory distress syndrome. Patient was hospitalized for approximately 7 days. She was admitted to the hospital and started on IV dexamethasone and remdesivir. She was started back on her appropriate home blood pressure medication. She was currently being treated for osteomyelitis of done with vancomycin Augmentin and antifungal. During her hospital stay patient initially was stabilized on nasal cannula oxygen and occasional rebreather oxygen [facility] day 5 of 6 of hospitalization patient's oxygen status worsened and she was transferred to the ICU placed on high-flow nasal cannula oxygen with 50 L and an FiO2 of 70%. She was given continued IV steroids remdesivir and started on bar situ Nab. In requiring the a lot of sedation to help keep her from being significantly anxious due to her hypoxia. Due to the ongoing concern complication with long COVID and high-flow oxygen patient's poor nutrition and high likelihood of ongoing intubation and her being also in the hospital and on a ventilator with COVID. Transfer of plans were made at patient's request. The time of transfer patient was stable on heated high-flow oxygen her vital signs were stable she was afebrile. She was getting appropriate treatment for COVID and her osteomyelitis. Her likelihood of significant ear to duration was high and she was transferred to a tertiary care center Exam Vital Signs (past 8 hours): Fraction of Inspired Oxygen 0.72 Oxygen Delivery Method Heated High Flow Oxygen Flow Rate 50 Objective Labs Result Diagrams: 05/21/21 05:15 05/21/21 05:15 Labs: Laboratory Results - last 24 hr 05/21/21 08:52 ABG pH 7.42 ABG pCO2 33.3 L ABG pO2 65 L ABG HCO3 22 ABG Total CO2 23 ABG O2 Saturation 93 L ABG Base Excess -3.0 L FiO2 70 COUNT INCLUDES THE [facility] Medical History (Updated 05/21/21 @ 09:11 by Bruon Grider MD) Anxiety Asthma Hyperlipidemia Liver disease Migraines Obesity Personality disorder Surgical History Status post delivery Status post surgery (04/20/11) Family History Mother DM (diabetes mellitus screen) Hypertension Social History marital status: household members: spouse and children Smoking Status: Former smoker alcohol intake: current substance use type: does not use Discharge Plan Discharge Plan Patient Disposition: [facility] Other facility: [facility] Under care of provider: MARNI Nursing Discharge Comment: SEE NURSING NOTE Discharge Data Primary Care Provider: Bruno Grider Discharges patient from system. Discharge Date/Time: 05/21/21 22:45 Quality VTE Deep Vein Thrombosis/Pulmonary Embolism Present on Admission: No
== END 2021-05-21 22:45 | disposition short-term general hospital (02) | DRG 177 ==
LOC: ED 16:56 → AC 17:18 → ICU 05-15 08:32 → AC 05-20 08:05 → ICU 05-21 09:41 → AC 05-26 09:45 → ICU 05-26 09:45
PROVIDERS: Student in an Organized Health Care Education/Training Program; Admitting Provider Family Medicine; Emergency Provider Emergency Medicine; PCP Family Medicine; Referring Provider Emergency Medicine; Visit Provider Family Medicine
DX: U07.1 COVID-19 (principal); J12.82 Pneumonia due to coronavirus disease 2019; J96.01 Acute respiratory failure with hypoxia; E43 Unspecified severe protein-calorie malnutrition; J45.901 Unspecified asthma with (acute) exacerbation; M86.641 Other chronic osteomyelitis, right hand; E87.1 Hypo-osmolality and hyponatremia; E66.9 Obesity, unspecified; E28.2 Polycystic ovarian syndrome; E87.8 Other disorders of electrolyte and fluid balance, not elsewhere classified; I10 Essential (primary) hypertension; F32.A Depression, unspecified; F41.9 Anxiety disorder, unspecified; Z87.891 Personal history of nicotine dependence; Z68.38 Body mass index [BMI] 38.0-38.9, adult
CPT/HCPCS: 36415; 36569; 36592; 36600; 71045; 71046; 71275; 80053; 80202; 82805; 82962; 83605; 83735; 83880; 84145; 85007; 85025; 85379; 85610; 86140; 87040; 87797; 94640; 94762; 96361; 96374; 96375; 99222; 99232; 99284; J1100; J1642; J1650; J1815; J1885; J2060; J2405; J3475; J7613

== ENCOUNTER → 2022-07-06 12:45 | Outpatient (CLI) | payer OTHER, SELFPAY ==
[2021-05-14 20:00] VITALS: BMI 38.4
--- NOTE | 2022-07-06 | DI.MG.S_ITS ---
BILATERAL DIGITAL SCREENING MAMMOGRAM 3D/2D WITH CAD: 07/06/2022 CLINICAL: Routine screening. Comparison is made to exams dated: 03/20/2021 mammogram, 08/05/2018 mammogram, and 07/29/2017 mammogram - [facility]. Both breasts are heterogeneously dense, which may obscure small masses (category c / 51-75% glandular tissue). Current study was also evaluated with a Computer Aided Detection (CAD) system. No significant masses, calcifications, or other findings are seen in either breast. There has been no significant interval change. IMPRESSION: NEGATIVE There is no mammographic evidence of malignancy. A 1 year screening mammogram is recommended. Based on the Tyrer Cuzick model (a risk assessment model) the patient's lifetime risk is 14.0% and her 10 year risk is 2.8%. According to the ACR, ACS, and NCCN guidelines, an annual breast MRI exam along with mammogram is recommended if the patient's lifetime risk is 20% or greater. This exam was interpreted at Station ID: [id number]. NOTE: For mammograms, a report in lay terms will be sent to the patient. Approximately 15% of breast malignancies will not be visualized mammographically. In the management of a palpable breast mass, a negative mammogram must not discourage biopsy of a clinically suspicious lesion. Electronically Signed By: Jordy gilman/frandy:07/06/2022 13:21:37 letter sent: Normal Exam ACR BI-RADS Category 1: Negative 3341F
== END ==
PROVIDERS: PCP Family Medicine; Referring Provider Family Medicine; Visit Provider Family Medicine
DX: Z12.31 Encounter for screening mammogram for malignant neoplasm of breast (principal)
CPT/HCPCS: 77063; 77067

== ENCOUNTER → 2023-07-07 16:28 | Outpatient (CLI) | payer OTHER, SELFPAY ==
[2021-05-14 20:00] VITALS: BMI 38.4
--- NOTE | 2023-07-07 16:29 | DI.MG.S_ITS ---
BILATERAL DIGITAL SCREENING MAMMOGRAM 3D/2D WITH CAD: 07/07/2023 CLINICAL: Routine screening. Comparison is made to exams dated: 07/06/2022 mammogram, 03/20/2021 mammogram, and 08/05/2018 mammogram - [facility]. Both breasts are heterogeneously dense, which may obscure small masses (category c / 51-75% glandular tissue). Current study was also evaluated with a Computer Aided Detection (CAD) system. There are segmental calcifications in the left breast at 5 o'clock anterior depth. These are increased in number. No other significant masses, calcifications, or other findings are seen in either breast. IMPRESSION: INCOMPLETE: NEEDS ADDITIONAL IMAGING EVALUATION The segmental calcifications in the left breast are indeterminate. Additional views are recommended. Based on Tyrer-Cuzick model (a risk assessment model), the patient's lifetime risk is 27.3% and her 10 year risk is 6.3%. If a patient has an elevated risk, a more comprehensive evaluation should be considered and/or a referral to a genetic counselor. The [place] [employer], [employer], and NCCN Guidelines advise the consideration of Breast MRI as an adjunct to screening mammography in patients whose Lifetime risk to develop breast cancer is 20% or higher. This exam was interpreted at Station ID: [id number]. NOTE: For mammograms, a report in lay terms will be sent to the patient. Approximately 15% of breast malignancies will not be visualized mammographically. In the management of a palpable breast mass, a negative mammogram must not discourage biopsy of a clinically suspicious lesion. Electronically Signed By: Eduardo Reynolds M.D. lc/:07/08/2023 12:00:08 copy to: TATE Doss [facility] letter sent: Additional Imaging Needed ACR BI-RADS Category 0: Incomplete 3340F
== END ==
PROVIDERS: PCP Family Medicine; Referring Provider Family Medicine; Visit Provider Family Medicine
DX: Z12.31 Encounter for screening mammogram for malignant neoplasm of breast (principal); R92.333 Mammographic heterogeneous density, bilateral breasts
CPT/HCPCS: 77063; 77067

== ENCOUNTER → 2023-07-21 09:35 | Outpatient (CLI) | payer OTHER, SELFPAY ==
[2021-05-14 20:00] VITALS: BMI 38.4
--- NOTE | 2023-07-21 09:37 | DI.MG.S_ITS ---
UNILATERAL LEFT DIGITAL DIAGNOSTIC MAMMOGRAM 3D/2D WITH ADDITIONAL VIEWS: 07/21/2023 CLINICAL: Additional evaluation requested from prior study. Comparison is made to exams dated: 07/07/2023 mammogram, 07/06/2022 mammogram, 03/20/2021 mammogram, and 08/05/2018 mammogram - [facility]. The left breast is heterogeneously dense, which may obscure small masses (category c / 51-75% glandular tissue). There are linear calcifications in the left breast at 5 o'clock anterior depth. These are seen in additional views. These are increased in number. No other significant masses or calcifications are seen in the breast. IMPRESSION: SUSPICIOUS OF MALIGNANCY The linear calcifications with possible branching pattern in the left breast are suspicious of malignancy. A stereotactic biopsy is recommended. Findings and recommendations were discussed with the patient by Dr. Cassidy during today's examination. Based on Tyrer-Cuzick model (a risk assessment model), the patient's lifetime risk is 27.3% and her 10 year risk is 6.3%. If a patient has an elevated risk, a more comprehensive evaluation should be considered and/or a referral to a genetic counselor. The [place] [employer], [place] [employer], and NCCN Guidelines advise the consideration of Breast MRI as an adjunct to screening mammography in patients whose Lifetime risk to develop breast cancer is 20% or higher. This exam was interpreted at Station ID: [id number]. NOTE: For mammograms, a report in lay terms will be sent to the patient. Approximately 15% of breast malignancies will not be visualized mammographically. In the management of a palpable breast mass, a negative mammogram must not discourage biopsy of a clinically suspicious lesion. Electronically Signed By: Piyush Bates M.D. aty/:07/21/2023 10:30:29 letter sent: Biopsy Required ACR BI-RADS Category 4: Suspicious abnormality 3344F
== END ==
PROVIDERS: PCP Family Medicine; Referring Provider Family Medicine; Visit Provider Family Medicine
DX: R92.8 Other abnormal and inconclusive findings on diagnostic imaging of breast (principal); R92.1 Mammographic calcification found on diagnostic imaging of breast; R92.332 Mammographic heterogeneous density, left breast
CPT/HCPCS: 77065; G0279

== ENCOUNTER → 2023-12-08 12:50 | Outpatient (CLI) | payer OTHER, SELFPAY ==
[2021-05-14 20:00] VITALS: BMI 38.4
== END ==
PROVIDERS: Family Provider Family Medicine; PCP Family Medicine; Visit Provider Surgery
DX: T81.31XA Disruption of external operation (surgical) wound, not elsewhere classified, initial encounter (principal); S21.001A Unspecified open wound of right breast, initial encounter; L98.8 Other specified disorders of the skin and subcutaneous tissue; I10 Essential (primary) hypertension
CPT/HCPCS: 99213

== ENCOUNTER → 2023-12-15 13:44 | Outpatient (CLI) | payer OTHER, SELFPAY ==
[2021-05-14 20:00] VITALS: BMI 38.4
== END ==
PROVIDERS: Family Provider Family Medicine; PCP Family Medicine; Referring Provider Family Medicine; Visit Provider Nurse Practitioner Family
DX: T81.31XA Disruption of external operation (surgical) wound, not elsewhere classified, initial encounter (principal); L98.8 Other specified disorders of the skin and subcutaneous tissue; S21.001A Unspecified open wound of right breast, initial encounter; R60.0 Localized edema
CPT/HCPCS: 99213

== ENCOUNTER → 2023-12-23 15:39 | Outpatient (CLI) | payer OTHER, SELFPAY ==
[2021-05-14 20:00] VITALS: BMI 38.4
== END ==
LOC: WC 15:41
PROVIDERS: Family Provider Family Medicine; PCP Family Medicine; Referring Provider Internal Medicine; Visit Provider Surgery
DX: T81.89XA Other complications of procedures, not elsewhere classified, initial encounter (principal); S21.001A Unspecified open wound of right breast, initial encounter; L98.8 Other specified disorders of the skin and subcutaneous tissue; R60.0 Localized edema
CPT/HCPCS: 11042

== ENCOUNTER → 2024-01-06 08:55 | Outpatient (CLI) | payer OTHER, SELFPAY ==
[2021-05-14 20:00] VITALS: BMI 38.4
== END ==
PROVIDERS: Family Provider Family Medicine; PCP Family Medicine; Referring Provider Internal Medicine; Visit Provider Surgery
DX: T81.89XA Other complications of procedures, not elsewhere classified, initial encounter (principal); S21.001A Unspecified open wound of right breast, initial encounter; L98.8 Other specified disorders of the skin and subcutaneous tissue; R60.0 Localized edema; I10 Essential (primary) hypertension
CPT/HCPCS: 99213

== ENCOUNTER 2024-01-19 13:00 | Outpatient (RCR) | payer OTHER, SELFPAY ==
[2021-05-14 20:00] VITALS: BMI 38.4
--- NOTE | 2024-01-11 16:05 | PT.OPPOC ---
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 Judith Trent PA-C Attending Provider Non-Staff Referring Provider Specialty: Medical Address: [address] [place] [address], [id number] Fax: Email: Plan Of Care PT-OP-B Current Condition Start: 12/13/23 08:05 Freq: Status: Active Protocol: Document 01/11/24 10:29 [facility] (Rec: 01/11/24 10:48 [facility] [id number]) Current Condition History of Current Condition Onset Date September 2023 Current Complaints concern over lymphedema History of Current Condition lumpectomy x 2 left breast with sentinal node biopsy. September 2023, breast reduction on both breasts October 2023, surgery for blood clot right breast October 2023. Has being seen by wound care clinic s/p clot surgery right breast. No precautions for exercise. Hasn't started radiation yet, should have plan within 2 weeks. Radiation will be every day x 3 weeks in [place] . No chemo, not taking Tamoxefin. Reports no swelling, but some tightness in chest and shoulders. Prior Treatments and Tests as above Future Testing and Treatments Planned radiation to be starting soon Treatment Goals Patient/Caregiver Goals prevent lymphedema or be able to self manage if develops, regain full active motion of her shoulders. Prior Functional Status Baseline Function- ADL's Independent Baseline Function- Mobility Independent Baseline Function- Work/School no limitations PT-OP-T Assessment and Plan Start: 12/13/23 08:05 Freq: Status: Active Protocol: Document 01/11/24 10:29 [facility] (Rec: 01/13/24 17:08 [facility] [id number]) Physical Therapy Assessment Rehab Potential Rehabilitation Potential Good Evaluation Complexity Number of Personal Factors/Comorbidities 1-2 Number of Body Systems Impaired 3 Clinical Presentation at Evaluation Evolving Impairments Impairments ROM,Soft Tissue Mobility Other Impairments high risk for lymphedema Goals Two Impairment knowledge deficit regarding lymphedema Short Term Goal (STG) Patient will be educated in signs and symptoms of lymphedema for monitoring and self MLD for lymphatic health. STG Duration 02/15/24 Longterm Goal (LTG) Patient will demonstrate good understanding and ability to self monitor for signs and symptoms of lymphedema and be independent with self MLD. She will be monitored throughout her radiation and complete decongestive therapy initiated if lymphedema develops LTG Duration 04/12/24 One Impairment Decreased ROM and flexibility throughout chest and shoulders Short Term Goal (STG) Patient to be instrsucted in HEP for purposes of flexibility and ROM chest and ruby shoulders STG Duration 02/15/24 Longterm Goal (LTG) Patient will be independent and compliant with HEP and demonstrate full ROM throughout chest and shoulders LTG Duration 04/12/24 Assessment Summary Assessment Patient presents to PT s/p left breast lumpectomy, sentinal node biopsy left breast, bilateral breast reduction with complication of blood clot right breast. She will be starting 3 weeks of radiation soon. Physical examination today didn't reveal any signs or symptoms of lymphedema but she was instructed in self manual lymphatic drainage with rationale and signs and symptoms to watch for with radiation as she is at high risk to develop lymphedema. Additionally patient has decreased ROM in ruby shoulders and chest left greater than right s/p her surgeries. She was instructed in HEP of ther ex for flexibility and demonstrated good understanding. At this time patient will be seen to continue to monitor for signs and symptoms of lymphedema as well as progress with ROM of her shoulders and chest especially in response to radiation. Physical Therapy Plan Frequency and Duration Frequency of Treatment 20 Duration of treatment (weeks) 12 Plan of Care Start Date 01/11/24 Plan of Care End Date 04/12/24 Therapeutic Interventions Therapeutic Interventions Home Exercise Program, Lymphedema Management,Manual Therapy,Patient/Caregiver Education,Self-Care/Home Management,Soft Tissue Mobilization,Taping, Therapeutic Activities, Therapeutic Exercises Modalities Vasopneumatic Devices Next Visit Focus/Plan Next Note Type Treatment Note Next Visit Plan Review self MLD , HEP. Continue to progress as indicated. Discuss scheduling in relation to her radiation schedule if has. Monitor for signs and symptoms of lymphedema. Plan of Care Dates Plan of Care Start Date 01/11/24 Plan of Care End Date 04/12/24 Electronically Signed by: Bernadette Dubois, PT 01/19/24 [id number] If you are in agreement with this Plan of Care, please return a signed and dated copy. I have reviewed this Plan of Care and certify that the skilled therapy services above are required to meet the patient?s needs. Physician Signature Date Printed Name and Credentials Clinical Instructor Signature Printed Name and Credentials
--- NOTE | 2024-01-11 16:05 | PT.OIE ---
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) Past Medical History (Last Updated 06/04/21 @ 12:59 by Payton Campos PA-C) Anxiety ARDS (adult respiratory distress syndrome) Asthma Encounter for routine gynecologic examination in Medicare patient Hyperlipidemia Liver disease Menometrorrhagia Migraines Obesity Personality disorder Pneumonia due to Respiratory failure with hypoxia Past Surgical History (Last Reviewed 05/14/21 @ 15:38 by Ammy Arboleda MD) Status post delivery Status post surgery (04/20/11) Visit Care Team Role Provider Type Bruno Grider MD Family Provider Physician Primary Care Provider Specialty: Family Practice Address: [address] [place] [address], [address], [place], [address] Email: [email or web address] Judith Trent PA-C Attending Provider Non-Staff Referring Provider Specialty: Medical Address: [address] [place] [address], [facility] Fax: Email: Physical Therapy Initial Evaluation PT-OP-A Visit Information Start: 12/13/23 08:05 Freq: Status: Active Protocol: Document 01/11/24 10:29 [facility] (Rec: 01/11/24 10:48 [facility] [id number]) Out-Patient Physical Therapy Visit Information Visit Information Visit Type Initial Evaluation Visit Start Time 10: Visit Stop Time 12:00 Visit Number 1 Evaluation Information Evaluation Date 01/11/24 PT-OP-B Current Condition Start: 12/13/23 08:05 Freq: Status: Active Protocol: Document 01/11/24 10:29 [facility] (Rec: 01/11/24 10:48 [facility] [id number]) Current Condition History of Current Condition Onset Date September 2023 Current Complaints concern over lymphedema History of Current Condition lumpectomy x 2 left breast with sentinal node biopsy. September 2023, breast reduction on both breasts October 2023, surgery for blood clot right breast October 2023. Has being seen by wound care clinic s/p clot surgery right breast. No precautions for exercise. Hasn't started radiation yet, should have plan within 2 weeks. Radiation will be every day x 3 weeks in [place] . No chemo, not taking Tamoxefin. Reports no swelling, but some tightness in chest and shoulders. Prior Treatments and Tests as above Future Testing and Treatments Planned radiation to be starting soon Treatment Goals Patient/Caregiver Goals prevent lymphedema or be able to self manage if develops, regain full active motion of her shoulders. Prior Functional Status Baseline Function- ADL's Independent Baseline Function- Mobility Independent Baseline Function- Work/School no limitations PT-OP-C Subjective Start: 12/13/23 08:05 Freq: Status: Active Protocol: Document 01/11/24 10:29 [facility] (Rec: 01/19/24 10:26 [facility] [id number]) OP-PT Subjective Patient Comments Patient Comments Patient reports concerned about potential for lymphedema and has no knowledge of management or signs and symptoms Patient Questionnaires Lymphedema Life Impact Score Lymphedema Score 1 OP-PT Pain Assessment Pain Assessment Grid Paper Pain Assessment Grid Completed Yes Location Bilateral Breast Pain Location Details breasts, shoulders Intensity 0 PT-OP-J Posture/Palpation/Skin Start: 12/13/23 08:05 Freq: Status: Active Protocol: Document 01/11/24 10:29 [facility] (Rec: 01/19/24 10:26 [facility] [id number]) Posture Evaluation Position Sitting Head/C-Spine Posture Forward Head T-Spine Posture Increased Kyphosis Shoulder Posture (L) Rounded,(R) Rounded Scapula Posture (L) Protracted,(R) Protracted Palpation Assessment Location ruby axilla Palpation Details no axillary cording Skin Assessment Incisional Assessment Incision Appearance/Comments well healed, mild decrease in mobility, patient instructed in self massage with vitamin e oil PT-OP-K Range of Motion Start: 12/13/23 08:05 Freq: Status: Active Protocol: Document 01/11/24 10:29 [facility] (Rec: 01/19/24 10:26 [facility] [id number]) Cervical Spine Range of Motion Cervical Spine Active Comments WNL Shoulder Goniometric Range of Motion Shoulder Right Active Flexion 155 Extension 30 Abduction 155 External Rotation at 45 degrees 60 Abduction Internal Rotation Behind Back (text) T7 Left Active Flexion 145 Extension 25 Abduction 150 External Rotation at 45 degrees 55 Abduction Internal Rotation Behind Back (text) T12 PT-OP-L Special Tests Start: 12/13/23 08:05 Freq: Status: Active Protocol: Document 01/11/24 10:27 [facility] (Rec: 01/19/24 11:59 [facility] [id number]) Special Tests Other Special Tests Special Tests Stemmer sign negative PT-OP-Q Treatments Start: 12/13/23 08:05 Freq: Status: Active Protocol: Document 01/11/24 10:27 [facility] (Rec: 01/19/24 11:59 [facility] [id number]) Self-Care/Home Management Treatment Education Patient Education Home Exercise Program Lymphedema Treatment Manual Lymphatic Drainage Location instructed and issued handout and online resources PT-OP-T Assessment and Plan Start: 12/13/23 08:05 Freq: Status: Active Protocol: Document 01/11/24 10:29 [facility] (Rec: 01/13/24 17:08 [facility] [id number]) Physical Therapy Assessment Rehab Potential Rehabilitation Potential Good Evaluation Complexity Number of Personal Factors/Comorbidities 1-2 Number of Body Systems Impaired 3 Clinical Presentation at Evaluation Evolving Impairments Impairments ROM,Soft Tissue Mobility Other Impairments high risk for lymphedema Goals Two Impairment knowledge deficit regarding lymphedema Short Term Goal (STG) Patient will be educated in signs and symptoms of lymphedema for monitoring and self MLD for lymphatic health. STG Duration 02/15/24 Usp Goal (LTG) Patient will demonstrate good understanding and ability to self monitor for signs and symptoms of lymphedema and be independent with self MLD. She will be monitored throughout her radiation and complete decongestive therapy initiated if lymphedema develops LTG Duration 04/12/24 One Impairment Decreased ROM and flexibility throughout chest and shoulders Short Term Goal (STG) Patient to be instrsucted in HEP for purposes of flexibility and ROM chest and ruby shoulders STG Duration 02/15/24 Usp Goal (LTG) Patient will be independent and compliant with HEP and demonstrate full ROM throughout chest and shoulders LTG Duration 04/12/24 Assessment Summary Assessment Patient presents to PT s/p left breast lumpectomy, sentinal node biopsy left breast, bilateral breast reduction with complication of blood clot right breast. She will be starting 3 weeks of radiation soon. Physical examination today didn't reveal any signs or symptoms of lymphedema but she was instructed in self manual lymphatic drainage with rationale and signs and symptoms to watch for with radiation as she is at high risk to develop lymphedema. Additionally patient has decreased ROM in ruby shoulders and chest left greater than right s/p her surgeries. She was instructed in HEP of ther ex for flexibility and demonstrated good understanding. At this time patient will be seen to continue to monitor for signs and symptoms of lymphedema as well as progress with ROM of her shoulders and chest especially in response to radiation. Physical Therapy Plan Frequency and Duration Frequency of Treatment 20 Duration of treatment (weeks) 12 Plan of Care Start Date 01/11/24 Plan of Care End Date 04/12/24 Therapeutic Interventions Therapeutic Interventions Home Exercise Program, Lymphedema Management,Manual Therapy,Patient/Caregiver Education,Self-Care/Home Management,Soft Tissue Mobilization,Taping, Therapeutic Activities, Therapeutic Exercises Modalities Vasopneumatic Devices Next Visit Focus/Plan Next Note Type Treatment Note Next Visit Plan Review self MLD , HEP. Continue to progress as indicated. Discuss scheduling in relation to her radiation schedule if has. Monitor for signs and symptoms of lymphedema.
--- NOTE | 2024-01-19 12:01 | PT.OIE ---
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) Past Medical History (Last Updated 06/04/21 @ 12:59 by Payton Campos PA-C) Anxiety ARDS (adult respiratory distress syndrome) Asthma Encounter for routine gynecologic examination in Medicare patient Hyperlipidemia Liver disease Menometrorrhagia Migraines Obesity Personality disorder Pneumonia due to Respiratory failure with hypoxia Past Surgical History (Last Reviewed 05/14/21 @ 15:38 by Ammy Arboleda MD) Status post delivery Status post surgery (04/20/11) Visit Care Team Role Provider Type Bruno Grider MD Family Provider Physician Primary Care Provider Specialty: Family Practice Address: [address] [place] [address], [address], [place], [address] Email: [email or web address] Judith Trent PA-C Attending Provider Non-Staff Referring Provider Specialty: Medical Address: [address] [place] [address], [facility] Fax: Email: Physical Therapy Initial Evaluation PT-OP-A Visit Information Start: 12/13/23 08:05 Freq: Status: Active Protocol: Document 01/11/24 10:29 [facility]AK (Rec: 01/11/24 10:48 [facility] [id number]) Out-Patient Physical Therapy Visit Information Visit Information Visit Type Initial Evaluation Visit Start Time 10: Visit Stop Time 12:00 Visit Number 1 Evaluation Information Evaluation Date 01/11/24 PT-OP-B Current Condition Start: 12/13/23 08:05 Freq: Status: Active Protocol: Document 01/11/24 10:29 SAK (Rec: 01/11/24 10:48 [facility] [id number]) Current Condition History of Current Condition Onset Date September 2023 Current Complaints concern over lymphedema History of Current Condition lumpectomy x 2 left breast with sentinal node biopsy. September 2023, breast reduction on both breasts October 2023, surgery for blood clot right breast October 2023. Has being seen by wound care clinic s/p clot surgery right breast. No precautions for exercise. Hasn't started radiation yet, should have plan within 2 weeks. Radiation will be every day x 3 weeks in [place] . No chemo, not taking Tamoxefin. Reports no swelling, but some tightness in chest and shoulders. Prior Treatments and Tests as above Future Testing and Treatments Planned radiation to be starting soon Treatment Goals Patient/Caregiver Goals prevent lymphedema or be able to self manage if develops, regain full active motion of her shoulders. Prior Functional Status Baseline Function- ADL's Independent Baseline Function- Mobility Independent Baseline Function- Work/School no limitations PT-OP-C Subjective Start: 12/13/23 08:05 Freq: Status: Active Protocol: Document 01/11/24 10:29 [facility] (Rec: 01/19/24 10:26 [facility] [id number]) OP-PT Subjective Patient Comments Patient Comments Patient reports concerned about potential for lymphedema and has no knowledge of management or signs and symptoms Patient Questionnaires Lymphedema Life Impact Score Lymphedema Score 1 OP-PT Pain Assessment Pain Assessment Grid Paper Pain Assessment Grid Completed Yes Location Bilateral Breast Pain Location Details breasts, shoulders Intensity 0 PT-OP-J Posture/Palpation/Skin Start: 12/13/23 08:05 Freq: Status: Active Protocol: Document 01/11/24 10:29 [facility] (Rec: 01/19/24 10:26 [facility] [id number]) Posture Evaluation Position Sitting Head/C-Spine Posture Forward Head T-Spine Posture Increased Kyphosis Shoulder Posture (L) Rounded,(R) Rounded Scapula Posture (L) Protracted,(R) Protracted Palpation Assessment Location ruby axilla Palpation Details no axillary cording Skin Assessment Incisional Assessment Incision Appearance/Comments well healed, mild decrease in mobility, patient instructed in self massage with vitamin e oil PT-OP-K Range of Motion Start: 12/13/23 08:05 Freq: Status: Active Protocol: Document 01/11/24 10:29 [facility] (Rec: 01/19/24 10:26 [facility] [id number]) Cervical Spine Range of Motion Cervical Spine Active Comments WNL Shoulder Goniometric Range of Motion Shoulder Right Active Flexion 155 Extension 30 Abduction 155 External Rotation at 45 degrees 60 Abduction Internal Rotation Behind Back (text) T7 Left Active Flexion 145 Extension 25 Abduction 150 External Rotation at 45 degrees 55 Abduction Internal Rotation Behind Back (text) T12 PT-OP-L Special Tests Start: 12/13/23 08:05 Freq: Status: Active Protocol: Document 01/11/24 10:27 [facility] (Rec: 01/19/24 11:59 [facility] [id number]) Special Tests Other Special Tests Special Tests Stemmer sign negative PT-OP-Q Treatments Start: 12/13/23 08:05 Freq: Status: Active Protocol: Document 01/11/24 10:27 [facility] (Rec: 01/19/24 11:59 [facility] [id number]) Self-Care/Home Management Treatment Education Patient Education Home Exercise Program Lymphedema Treatment Manual Lymphatic Drainage Location instructed and issued handout and online resources PT-OP-T Assessment and Plan Start: 12/13/23 08:05 Freq: Status: Active Protocol: Document 01/11/24 10:29 [facility] (Rec: 01/13/24 17:08 [facility] [id number]) Physical Therapy Assessment Rehab Potential Rehabilitation Potential Good Evaluation Complexity Number of Personal Factors/Comorbidities 1-2 Number of Body Systems Impaired 3 Clinical Presentation at Evaluation Evolving Impairments Impairments ROM,Soft Tissue Mobility Other Impairments high risk for lymphedema Goals Two Impairment knowledge deficit regarding lymphedema Short Term Goal (STG) Patient will be educated in signs and symptoms of lymphedema for monitoring and self MLD for lymphatic health. STG Duration 02/15/24 Fdc Goal (LTG) Patient will demonstrate good understanding and ability to self monitor for signs and symptoms of lymphedema and be independent with self MLD. She will be monitored throughout her radiation and complete decongestive therapy initiated if lymphedema develops LTG Duration 04/12/24 One Impairment Decreased ROM and flexibility throughout chest and shoulders Short Term Goal (STG) Patient to be instrsucted in HEP for purposes of flexibility and ROM chest and ruby shoulders STG Duration 02/15/24 Fdc Goal (LTG) Patient will be independent and compliant with HEP and demonstrate full ROM throughout chest and shoulders LTG Duration 04/12/24 Assessment Summary Assessment Patient presents to PT s/p left breast lumpectomy, sentinal node biopsy left breast, bilateral breast reduction with complication of blood clot right breast. She will be starting 3 weeks of radiation soon. Physical examination today didn't reveal any signs or symptoms of lymphedema but she was instructed in self manual lymphatic drainage with rationale and signs and symptoms to watch for with radiation as she is at high risk to develop lymphedema. Additionally patient has decreased ROM in ruby shoulders and chest left greater than right s/p her surgeries. She was instructed in HEP of ther ex for flexibility and demonstrated good understanding. At this time patient will be seen to continue to monitor for signs and symptoms of lymphedema as well as progress with ROM of her shoulders and chest especially in response to radiation. Physical Therapy Plan Frequency and Duration Frequency of Treatment 20 Duration of treatment (weeks) 12 Plan of Care Start Date 01/11/24 Plan of Care End Date 04/12/24 Therapeutic Interventions Therapeutic Interventions Home Exercise Program, Lymphedema Management,Manual Therapy,Patient/Caregiver Education,Self-Care/Home Management,Soft Tissue Mobilization,Taping, Therapeutic Activities, Therapeutic Exercises Modalities Vasopneumatic Devices Next Visit Focus/Plan Next Note Type Treatment Note Next Visit Plan Review self MLD , HEP. Continue to progress as indicated. Discuss scheduling in relation to her radiation schedule if has. Monitor for signs and symptoms of lymphedema.
--- NOTE | 2024-02-15 15:53 | PT.OPDS ---
Current Diagnoses Intraductal carcinoma in situ of left breast (01/19/24) Visit Care Team Role Provider Type Bruno Grider MD Family Provider Physician Primary Care Provider Specialty: Family Practice Address: [address] [place] [address], [address], [place], [address] Email: [email or web address] Judith Trent PA-C Attending Provider Non-Staff Referring Provider Specialty: Medical Address: [address] [place] [address], [id number] Email: Visit Number Visit Number 2 Discharge Summary PT-OP-B Current Condition Start: 12/13/23 08:05 Freq: Status: Active Protocol: Document 01/19/24 12:57 [facility] (Rec: 01/19/24 13:58 [facility] [id number]) Current Condition History of Current Condition Onset Date September 2023 Current Complaints concern over lymphedema History of Current Condition lumpectomy x 2 left breast with sentinal node biopsy. September 2023, breast reduction on both breasts October 2023, surgery for blood clot right breast October 2023. Has being seen by wound care clinic s/p clot surgery right breast. No precautions for exercise. Hasn't started radiation yet, should have plan within 2 weeks. Radiation will be every day x 3 weeks in [place] . No chemo, not taking Tamoxefin. Reports no swelling, but some tightness in chest and shoulders. Prior Treatments and Tests as above Future Testing and Treatments Planned radiation to be starting soon Treatment Goals Patient/Caregiver Goals prevent lymphedema or be able to self manage if develops, regain full active motion of her shoulders. Prior Functional Status Baseline Function- ADL's Independent Baseline Function- Mobility Independent Baseline Function- Work/School no limitations PT-OP-C Subjective Start: 12/13/23 08:05 Freq: Status: Active Protocol: Document 01/19/24 12:57 [facility] (Rec: 01/19/24 13:58 [facility] [id number]) OP-PT Subjective Patient Comments Patient Comments Patient has now had 2 radiation treatments. Feeling ok so far. Last appt 02/08/24. PT-OP-J Posture/Palpation/Skin Start: 12/13/23 08:05 Freq: Status: Active Protocol: Document 01/11/24 10:29 [facility] (Rec: 01/19/24 10:26 [facility] [id number]) Posture Evaluation Position Sitting Head/C-Spine Posture Forward Head T-Spine Posture Increased Kyphosis Shoulder Posture (L) Rounded,(R) Rounded Scapula Posture (L) Protracted,(R) Protracted Palpation Assessment Location ruby axilla Palpation Details no axillary cording Skin Assessment Incisional Assessment Incision Appearance/Comments well healed, mild decrease in mobility, patient instructed in self massage with vitamin e oil PT-OP-K Range of Motion Start: 12/13/23 08:05 Freq: Status: Active Protocol: Document 01/11/24 10:29 [facility] (Rec: 01/19/24 10:26 [facility] [id number]) Cervical Spine Range of Motion Cervical Spine Active Comments WNL Shoulder Goniometric Range of Motion Shoulder Right Active Flexion 155 Extension 30 Abduction 155 External Rotation at 45 degrees 60 Abduction Internal Rotation Behind Back (text) T7 Left Active Flexion 145 Extension 25 Abduction 150 External Rotation at 45 degrees 55 Abduction Internal Rotation Behind Back (text) T12 PT-OP-L Special Tests Start: 12/13/23 08:05 Freq: Status: Active Protocol: Document 01/11/24 10:27 [facility] (Rec: 01/19/24 11:59 [facility] [id number]) Special Tests Other Special Tests Special Tests Stemmer sign negative PT-OP-N Lymphedema Start: 12/13/23 08:05 Freq: Status: Active Protocol: Document 01/11/24 10:29 [facility] (Rec: 01/19/24 12:15 [facility] [id number]) Lymphedema Measurements Upper Extremity Circumference Measurements Right Affected MCP 19.4 cm Dorsum of Hand 20.2 cm Wrist 17.4 cm 5 cm From Wrist Crease 18.1 cm 10 cm From Wrist Crease 21.1 cm 15 cm From Wrist Crease 25.2 cm 20 cm From Wrist Crease 26.3 cm 25 cm From Wrist Crease 26.9 cm 30 cm From Wrist Crease 30 cm 35 cm From Wrist Crease 32.5 cm 40 cm From Wrist Crease 32.7 cm 45 cm From Wrist Crease 35.1 cm Left Affected MCP 19.5 cm Dorsum of Hand 20 cm Wrist 17.1 cm 5 cm From Wrist Crease 18 cm 10 cm From Wrist Crease 20.9 cm 15 cm From Wrist Crease 25 cm 20 cm From Wrist Crease 26.3 cm 25 cm From Wrist Crease 26.9 cm 30 cm From Wrist Crease 29.8 cm 35 cm From Wrist Crease 32.2 cm 40 cm From Wrist Crease 32.5 cm 45 cm From Wrist Crease 35.1 cm Elbow Joint 27 cm PT-OP-T Assessment and Plan Start: 12/13/23 08:05 Freq: Status: Active Protocol: Document 02/15/24 15:53 [facility] (Rec: 02/15/24 15:53 [facility] [id number]) Physical Therapy Plan Discharge Physical Therapy Discharge Reasons Patient Request
--- NOTE | 2024-09-21 11:15 | PT.OPDS ---
Current Diagnoses Intraductal carcinoma in situ of left breast (01/19/24) Visit Care Team Role Provider Type Bruno Grider MD Family Provider Physician Primary Care Provider Specialty: Family Practice Address: [address] [place] [address], [address], [place], [address] Email: [email or web address] Judith Trent PA-C Attending Provider Non-Staff Referring Provider Specialty: Medical Address: [address] [place] [address], [id number] Email: Visit Number Visit Number 2 Discharge Summary PT-OP-B Current Condition Start: 12/13/23 08:05 Freq: Status: Active Protocol: Document 01/19/24 12:57 [facility] (Rec: 01/19/24 13:58 [facility] [id number]) Current Condition History of Current Condition Onset Date September 2023 Current Complaints concern over lymphedema History of Current Condition lumpectomy x 2 left breast with sentinal node biopsy. September 2023, breast reduction on both breasts October 2023, surgery for blood clot right breast October 2023. Has being seen by wound care clinic s/p clot surgery right breast. No precautions for exercise. Hasn't started radiation yet, should have plan within 2 weeks. Radiation will be every day x 3 weeks in [place] . No chemo, not taking Tamoxefin. Reports no swelling, but some tightness in chest and shoulders. Prior Treatments and Tests as above Future Testing and Treatments Planned radiation to be starting soon Treatment Goals Patient/Caregiver Goals prevent lymphedema or be able to self manage if develops, regain full active motion of her shoulders. Prior Functional Status Baseline Function- ADL's Independent Baseline Function- Mobility Independent Baseline Function- Work/School no limitations PT-OP-C Subjective Start: 12/13/23 08:05 Freq: Status: Active Protocol: Document 01/19/24 12:57 [facility] (Rec: 01/19/24 13:58 [facility] [id number]) OP-PT Subjective Patient Comments Patient Comments Patient has now had 2 radiation treatments. Feeling ok so far. Last appt 02/08/24. PT-OP-J Posture/Palpation/Skin Start: 12/13/23 08:05 Freq: Status: Active Protocol: Document 01/11/24 10:29 [facility] (Rec: 01/19/24 10:26 [facility] [id number]) Posture Evaluation Position Sitting Head/C-Spine Posture Forward Head T-Spine Posture Increased Kyphosis Shoulder Posture (L) Rounded,(R) Rounded Scapula Posture (L) Protracted,(R) Protracted Palpation Assessment Location ruby axilla Palpation Details no axillary cording Skin Assessment Incisional Assessment Incision Appearance/Comments well healed, mild decrease in mobility, patient instructed in self massage with vitamin e oil PT-OP-K Range of Motion Start: 12/13/23 08:05 Freq: Status: Active Protocol: Document 01/11/24 10:29 [facility] (Rec: 01/19/24 10:26 [facility] [id number]) Cervical Spine Range of Motion Cervical Spine Active Comments WNL Shoulder Goniometric Range of Motion Shoulder Right Active Flexion 155 Extension 30 Abduction 155 External Rotation at 45 degrees 60 Abduction Internal Rotation Behind Back (text) T7 Left Active Flexion 145 Extension 25 Abduction 150 External Rotation at 45 degrees 55 Abduction Internal Rotation Behind Back (text) T12 PT-OP-L Special Tests Start: 12/13/23 08:05 Freq: Status: Active Protocol: Document 01/11/24 10:27 [facility] (Rec: 01/19/24 11:59 [facility] [id number]) Special Tests Other Special Tests Special Tests Stemmer sign negative PT-OP-N Lymphedema Start: 12/13/23 08:05 Freq: Status: Active Protocol: Document 01/11/24 10:29 [facility] (Rec: 01/19/24 12:15 [facility] [id number]) Lymphedema Measurements Upper Extremity Circumference Measurements Right Affected MCP 19.4 cm Dorsum of Hand 20.2 cm Wrist 17.4 cm 5 cm From Wrist Crease 18.1 cm 10 cm From Wrist Crease 21.1 cm 15 cm From Wrist Crease 25.2 cm 20 cm From Wrist Crease 26.3 cm 25 cm From Wrist Crease 26.9 cm 30 cm From Wrist Crease 30 cm 35 cm From Wrist Crease 32.5 cm 40 cm From Wrist Crease 32.7 cm 45 cm From Wrist Crease 35.1 cm Left Affected MCP 19.5 cm Dorsum of Hand 20 cm Wrist 17.1 cm 5 cm From Wrist Crease 18 cm 10 cm From Wrist Crease 20.9 cm 15 cm From Wrist Crease 25 cm 20 cm From Wrist Crease 26.3 cm 25 cm From Wrist Crease 26.9 cm 30 cm From Wrist Crease 29.8 cm 35 cm From Wrist Crease 32.2 cm 40 cm From Wrist Crease 32.5 cm 45 cm From Wrist Crease 35.1 cm Elbow Joint 27 cm PT-OP-T Assessment and Plan Start: 12/13/23 08:05 Freq: Status: Active Protocol: Document 09/21/24 11:14 [facility] (Rec: 09/21/24 11:15 [facility] Laptop) Physical Therapy Plan Discharge Physical Therapy Discharge Reasons Goals Met
== END 2024-09-22 13:48 | disposition home or self-care (01) ==
LOC: PHYS 13:00
PROVIDERS: Family Provider Family Medicine; PCP Family Medicine; Referring Provider Physician Assistant; Visit Provider Physician Assistant
DX: D05.12 Intraductal carcinoma in situ of left breast (principal)
CPT/HCPCS: 97110; 97162; 97535

== ENCOUNTER → 2024-01-20 15:01 | Outpatient (CLI) | payer OTHER, SELFPAY ==
[2021-05-14 20:00] VITALS: BMI 38.4
== END ==
PROVIDERS: Family Provider Family Medicine; PCP Family Medicine; Referring Provider Internal Medicine; Visit Provider Surgery
DX: S21.001D Unspecified open wound of right breast, subsequent encounter (principal); T81.31XD Disruption of external operation (surgical) wound, not elsewhere classified, subsequent encounter
CPT/HCPCS: 99213

== ENCOUNTER → 2024-09-19 07:07 | Outpatient (CLI) | payer OTHER, SELFPAY ==
[2021-05-14 20:00] VITALS: BMI 38.4
[2024-09-19 07:53] LABS: Add Manual Diff / Slide Review NO; Basophils Absolute Auto 0 /uL (0-100); Basophils Percent Auto 0.5 % (0-2); Eosinophils Absolute Auto 100 /uL (0-450); Eosinophils Percent Auto 1.8 % (2-4); Hematocrit 40.8 % (36-46); Hemoglobin 13.6 g/dL (12.0-16.0); Lymphocytes Absolute Auto 1400 /uL (1100-4500); Lymphocytes Percent Auto 17.3 % (25-40); Mean Corpuscular HGB Conc 33.4 % (30-36); Mean Corpuscular Hemoglobin 31.1 PG (26-34); Monocytes Absolute Auto 600 /uL (0-900); Monocytes Percent Auto 7.7 % (3-14); Neutrophils Absolute Auto 5700 /uL (1500-7000); Neutrophils Percent Auto 72.7 % (50-75); Platelet Count 253 X10^3/uL (150-400); Red Blood Cell Count 4.39 X10^6/uL (4.0-5.2); Red Cell Distribution Width 14.1 % (11.6-14.8); White Blood Cell Count 7.9 X10^3/uL (4.5-11.0)
[2024-09-19 08:06] LABS: Alanine Aminotransferase 18 IU/L (<35); Albumin 4.1 g/dL (3.5-5.0); Albumin Globulin Ratio 1.7 (1.0-2.8); Alkaline Phosphatase 44 U/L (38-126); Aspartate Aminotransferase 18 IU/L (14-36); BUN Creatinine Ratio 25.3 (6-22); Bilirubin Total 0.5 mg/dL (0.2-1.3); Blood Urea Nitrogen 19 mg/dL (7-17); Calcium 9.6 mg/dL (8.4-10.2); Carbon Dioxide 26 mmol/L (22-32); Chloride 103 mmol/L (98-107); Cholesterol 193 mg/dL (140-199); Estimated Glomerular Filt Rate > 60 mL/min (>60); Globulin 2.4 g/dL (1.7-4.1); Glucose 95 mg/dL (70-99); HDL Cholesterol 67 mg/dL (40-60); HEMOLYSIS < 15 (0-50); LDL Cholesterol Calculated 110 mg/dL (<100); Potassium 4.5 mmol/L (3.4-5.1); Sodium 136 mmol/L (137-145); Total Protein 6.5 g/dL (6.3-8.2); Triglycerides 80 mg/dL (35-150)
[2024-09-19 08:22] LABS: Free T4, Direct Thyroxine 0.93 ng/dL (0.78-2.19)
[2024-09-19 08:36] LABS: Thyroid Stimulating Hormone 1.22 uIU/mL (0.47-4.68)
[2024-09-19 08:40] LABS: Estradiol, Total 640.1 pg/mL
[2024-09-20 04:36] LABS: Apolipoprotein B 83 mg/dL (<90)
[2024-09-20 05:09] LABS: Insulin Level Total 11.1 uIU/mL (2.6-24.9)
== END ==
LOC: LAB 07:08
PROVIDERS: Family Provider Family Medicine; PCP Family Medicine; Referring Provider Obstetrics & Gynecology; Visit Provider Obstetrics & Gynecology
DX: Z13.6 Encounter for screening for cardiovascular disorders (principal); Z13.220 Encounter for screening for lipoid disorders; N95.1 Menopausal and female climacteric states
CPT/HCPCS: 0024U; 36415; 80053; 80061; 82172; 82670; 83001; 83525; 84439; 84443; 85025